=== PATIENT | female | born 1955 | race Caucasian/White ===

== ENCOUNTER → 2022-05-30 | Outpatient (CLI) | payer MEDICARE, SELFPAY ==
[2022-05-30 15:23] LABS: AST(SGOT) 17 U/L (15-37); Alanine Aminotransfer ALT/SGPT 26 U/L (13-56); Albumin, Serum 3.7 g/dL (3.2-5.0); Alkaline Phosphatase 75 U/L (45-117); Bilirubin, Direct 0.09 mg/dL (0.00-0.30); Globulin 3.9 g/dL (2.2-4.2); Protein, Total 7.6 g/dL (6.4-8.2)
[2022-06-01 09:38] LABS: Alpha Antitrypsin Serum 141 mg/dL (101-187)
== END | disposition home or self-care (01) ==
LOC: BIMLAB 12:16
PROVIDERS: PCP Family Medicine; Referring Provider Internal Medicine Pulmonary Disease; Visit Provider Internal Medicine Pulmonary Disease
DX: E88.01 Alpha-1-antitrypsin deficiency (principal)
CPT/HCPCS: 36415; 80076; 82103

== ENCOUNTER → 2022-10-29 | Outpatient (CLI) | payer MEDICARE, SELFPAY ==
--- NOTE | 2022-10-29 13:28 | CT_ITS ---
EXAM: CT CHEST, LUNG CANCER SCREENING WITHOUT INTRAVENOUS CONTRAST CLINICAL INDICATION: NICOTINE DEPENDENCE TECHNIQUE: Helically acquired images were obtained of the chest without intravenous contrast using low dose (LDCT) lung cancer screening protocol. This CT exam was performed using one or more of the following dose reduction techniques: automated exposure control, adjustment of the mA and/or kV according to patient size, and/or use of iterative reconstruction technique. This report was created using [email or web address] report generation technology. COMPARISON: None. FINDINGS: LUNGS AND PLEURAL SPACES: There are calcified nodules in both lung bases. There are mild emphysematous changes within both upper lobes. There is a small 4 mm noncalcified nodule attached to the fissure in the right upper lobe. There is linear scarring and atelectasis seen within the lingula of the left upper lobe. No pleural effusion or thickening. No pneumothorax. HEART: Unremarkable. Heart size is normal. No pericardial effusion. No significant coronary artery calcifications. MEDIASTINUM: Unremarkable. No mediastinal or hilar adenopathy. Esophagus is unremarkable. No hiatal hernia. THYROID: Unremarkable. No thyroid lesions. BONES/JOINTS: Unremarkable. No suspicious lytic or blastic abnormality. VASCULATURE: Unremarkable. Thoracic aorta is non-dilated. LYMPH NODES: Unremarkable. No enlarged lymph nodes. OTHER FINDINGS: There is a 2 mm noncalcified nodule in the left apex seen on series [address]/Low Dose CT Lung Screening IMPRESSION: Scarring or atelectasis within the lingula. There is a tiny noncalcified nodule in the left apex as well as a small noncalcified nodule attached to the pleura in the right upper lobe. No acute abnormalities identified. Lung-RADS score: 2 - Benign Appearance or Behavior. Recommend continued annual screening with low-dose CT (LDCT) in 12 months. Electronically Signed: Lazaro Cervantes MD at 23:50 EST ,
== END | disposition home or self-care (01) ==
PROVIDERS: PCP Family Medicine; Referring Provider Internal Medicine Pulmonary Disease; Visit Provider Internal Medicine Pulmonary Disease
DX: Z87.891 Personal history of nicotine dependence (principal)
CPT/HCPCS: 71271

== ENCOUNTER → 2023-12-14 | Outpatient (CLI) | payer MEDICARE, SELFPAY ==
--- NOTE | 2023-12-14 14:00 | CT_ITS ---
STUDY: LOW DOSE CT LUNG CANCER SCREENING REASON FOR EXAM: Female, 68 years old. Personal history of nicotine dependence RADIATION DOSAGE (If Supplied By Facility): CTDIvol = ( 2.01 ) mGy, DLP = ( 69.72 ) mGycm TECHNIQUE: No contrast was administered. Low dose technique was utilized (average mAS-38 and kVp 120). 1.25 mm axial source images with a slice interval of 1.25-mm were reconstructed in lung windows. 2.5 mm axial source images with a slice interval of 2.5-mm were reconstructed in lung windows. 5.0 mm axial source images with a slice interval of 5.0-mm were reconstructed in soft tissue windows. COMPARISON: 10/29/2022 Emphysema: Mild bilateral apical scarring. Mild emphysema. No change in a 4 mm noncalcified nodule in the inferior right upper lobe lungs adjacent to the minor fissure on image 128 consistent with a paravertebral lymph node. There is also no change in a 4 mm noncalcified nodule in the inferior right lower lobe lungs on image 221 consistent with a noncalcified granuloma. No change in linear scarring in the lingula. No new noncalcified nodule or mass. Endobronchial lesion: None Aorta: No thoracic aortic aneurysm. CORONARY ARTERIES: Coronary artery calcification is not seen. Heart: No cardiomegaly. Pulmonary artery: Normal Mediastinal nodes: Normal Other chest and abdominal findings: None CT/Low Dose CT Lung Screening IMPRESSION: Lung-RADS category 2 - Continue annual screening with LDCT in 12 months. IMPORTANT NOTES FOR USE: ACR Lung-RADS Version 1.1 Assessment Categories Release Date: 2018 Category: Coded 0-4 bases on nodule(s) with highest degree of suspicion. Negative screen is defined as categories 1 and 2; a positive screen is defined as categories 3 and 4. Category 3 and 4A nodules that are unchanged on interval CT should be coded as category 2, and individuals returned to screening in 12 months. Category 4X: Category 3 or 4 nodules with additional imaging findings that increase the suspicion of lung cancer, such as spiculation, GGN that doubles in size in 1 year, enlarged lymph notes, etc. Category Modifiers: S (significant finding unrelated to lung cancer) Electronically Signed: Hao Orellana MD at 22:38 EDT ,
== END | disposition home or self-care (01) ==
PROVIDERS: PCP Family Medicine; Referring Provider Internal Medicine Pulmonary Disease; Visit Provider Internal Medicine Pulmonary Disease
DX: Z87.891 Personal history of nicotine dependence (principal)
CPT/HCPCS: 71271

== ENCOUNTER 2024-08-12 14:09 | Inpatient (IN) | payer MEDICARE, SELFPAY ==
[2024-08-12] VITALS (23 sets, daily range): BP systolic 72–178; BP diastolic 53–120; PULSE 69–135; RESP 10–29; TEMP 36.6–36.8; O2SAT 75–100; BMI 23.3; BMI 22.8
--- NOTE | 2024-08-12 14:27 | EKG12_ITS ---
Test Reason : SOB Blood Pressure : */* mmHG Vent. Rate : 85 BPM Atrial Rate : 85 BPM P-R Int : 126 ms QRS Dur : 94 ms QT Int : 368 ms P-R-T Axes : 80 -58 83 degrees QTcB Int : 437 ms Normal sinus rhythm Left axis deviation Minimal voltage criteria for LVH, may be normal variant ( [place] product ) Septal infarct , age undetermined Abnormal ECG Confirmed by TORRES SANDOVAL, MARY ([id number]), city editor SHILPA NORRIS ([id number]) on 08/17/2024 1:33:02 P M Referred By: LAURA Confirmed By: MARY MACDONALD MD
--- NOTE | 2024-08-12 14:31 | EDS_ITS ---
HPI <MAHI Osman - Last Filed: 08/12/24 15:49> History of Present Illness Chief Complaint: Shortness of Breath Narrative Narrative: Patient 68-year-old female who presents to the [facility] apartment for worsening shortness of breath. Known past medical history of COPD, 1/2 pack/day smoker. Patient was seen at [facility] in the emergency department Thursday of this last week, that was 4 days ago, patient was placed on a Z-Lefty as well as prednisone. Per the daughter, the patient has been struggling at home, today, the patient was much more short of breath, 70% out in triage and is here for evaluation. Denies any specific fevers or chills however does have worsening cough. [facility] <MAHI Osman - Last Filed: 08/12/24 15:49> [facility] Medical History (Updated 08/12/24 @ 15:[address] Jacques Lacy MD) COPD (chronic obstructive pulmonary disease) Home Medications ?Medication ?Instructions ?Recorded ?Last Taken ?Type albuterol sulfate 90 mcg/actuation 2 inh inhalation Q6H PRN shortness 08/12/24 Unknown History aerosol inhaler of breath or wheezing aspirin 81 mg chewable tablet 1 tab PO DAILY 08/12/24 Unknown History (Aspirin Childrens) famotidine 40 mg tablet 40 mg PO DAILY 08/12/24 Unknown History glycopyrrolate 9 mcg-formoterol 2 inh inhalation BID 08/12/24 Unknown History 4.8 mcg HFA aerosol inhaler (Bevespi Aerosphere) Allergy/AdvReac Type Severity Reaction Status Date / Time No Known Allergies Allergy Verified 08/12/24 14:11 Social History Smoking Status: Current every day smoker tobacco type: cigarettes ROS <MAHI Osman - Last Filed: 08/12/24 15:49> ROS ED ROS Narrative Constitutional: Negative for fever, chills, weight loss. Positive for weakness Eyes: Negative for vision loss, vision change, double vision ENT: Negative for any sore throat, ear pain, congestion Cardiovascular: Negative for any chest pain, tightness, palpitations Respiratory: Negative for any sputum production, hemoptysis. Positive for cough, dyspnea, dyspnea on exertion, orthopnea Gastrointestinal: Negative for any abdominal pain, nausea, vomiting, diarrhea, constipation, blood in stool, blood in vomit : Negative for any urinary frequency, dysuria, retention, blood in urine Muscle skeletal: Negative for any neck pain, back pain Neurological: Negative for any headache, syncope, dizziness Skin: Negative for any rashes, itching, abrasions, lacerations Psychiatric: Negative for any depression, anxiety, stress, suicidal ideation, homicidal ideation Hematologic: Negative for any excessive bruising, easy bleeding EXAM <Tommy Diaz NP-C - Last Filed: 08/12/24 15:49> Physical Exam Narrative Exam Narrative: Vital signs reviewed. Patient on my initial evaluation patient did look to be in mild distress with tachypnea, broken sentences, obvious wheezing. Patient on 2 L is 93 to 94% HEET: Head normocephalic atraumatic, TMs clear bilaterally. Posterior pharynx is clear, dry mucous membranes. Nares clear bilaterally. Neck: Supple with no lymphadenopathy or tenderness. No signs of meningismus. Cardiac: Regular rate and rhythm no murmurs gallops or rubs, equal peripheral pulses bilaterally. Respiratory: Patient is tachypneic, using lithographers printer muscles, expiratory wheezes throughout pulmonary exam. Diminished lung sounds in the lower lobes.. No chest tenderness. Abdomen: Soft, nontender, nondistended. No abdominal bruit or pulsatile masses. No hepatosplenomegaly Extremities: No peripheral edema, no signs of gross trauma or deformity. Active full range of motion of all extremities. Neuro: Cranial nerves II through XII intact, no focal neurological deficits. Skin: Clean dry and intact with no rash, purpura, petechiae, vesicles or pustules. Backs/flank: No CVA tenderness, no midline spinal tenderness, no deformity. Psych: Normal mood and affect. No SI, HI or acute psychosis. Const Vital Signs: 08/12/24 14:11 08/12/24 14:32 08/12/24 14:32 Temperature 98 F Temperature Source Oral Pulse Rate 87 92 86 Respiratory Rate 28 H 23 H 22 H Respiratory Effort Respiratory Depth Respiratory Pattern Tachypnea Tachypnea Blood Pressure 160/72 H Blood Pressure Mean 101 Pulse Ox 97 98 Oxygen Delivery Method Nasal Cannula Oxygen Flow Rate (L/min) 2 Fraction of Inspired Oxygen (FIO2) 30 08/12/24 14:35 08/12/24 14:48 08/12/24 15:10 Temperature Temperature Source Pulse Rate 89 Respiratory Rate 25 H Respiratory Effort Short of Breath Accessory Muscle Use Respiratory Depth Shallow Respiratory Pattern Tachypnea Blood Pressure 148/110 H Blood Pressure Mean 122 Pulse Ox 93 Oxygen Delivery Method Room Air Room Air Bi-pap Oxygen Flow Rate (L/min) Fraction of Inspired Oxygen (FIO2) 08/12/24 15:18 08/12/24 15:39 Temperature Temperature Source Pulse Rate 86 89 Respiratory Rate 26 H 24 H Respiratory Effort Respiratory Depth Respiratory Pattern Blood Pressure 167/95 H Blood Pressure Mean 119 Pulse Ox 94 100 Oxygen Delivery Method Bi-pap Oxygen Flow Rate (L/min) Fraction of Inspired Oxygen (FIO2) 25 <Dr. Jacques Lacy MD - Last Filed: 08/12/24 16:31> Physical Exam Const Vital Signs: 08/12/24 14:11 08/12/24 14:32 08/12/24 14:32 Temperature 98 F Temperature Source Oral Pulse Rate 87 92 86 Respiratory Rate 28 H 23 H 22 H Respiratory Effort Respiratory Depth Respiratory Pattern Tachypnea Tachypnea Blood Pressure 160/72 H Blood Pressure Mean 101 Pulse Ox 97 98 Oxygen Delivery Method Nasal Cannula Oxygen Flow Rate (L/min) 2 Fraction of Inspired Oxygen (FIO2) 30 08/12/24 14:35 08/12/24 14:48 08/12/24 15:10 Temperature Temperature Source Pulse Rate 89 Respiratory Rate 25 H Respiratory Effort Short of Breath Accessory Muscle Use Respiratory Depth Shallow Respiratory Pattern Tachypnea Blood Pressure 148/110 H Blood Pressure Mean 122 Pulse Ox 93 Oxygen Delivery Method Room Air Room Air Bi-pap Oxygen Flow Rate (L/min) Fraction of Inspired Oxygen (FIO2) 08/12/24 15:18 08/12/24 15:39 Temperature Temperature Source Pulse Rate 86 89 Respiratory Rate 26 H 24 H Respiratory Effort Respiratory Depth Respiratory Pattern Blood Pressure 167/95 H Blood Pressure Mean 119 Pulse Ox 94 100 Oxygen Delivery Method Bi-pap Oxygen Flow Rate (L/min) Fraction of Inspired Oxygen (FIO2) 25 MDM <MAHI Osman - Last Filed: 08/12/24 15:49> MDM Lab Data Labs: Laboratory Results - last 24 hr 08/12/24 14:27 WBC 12.6 H RBC 4.54 Hgb 12.8 Hct 39.4 MCV 86.8 MCH 28.2 MCHC 32.5 RDW Std Deviation 41.5 RDW Coeff of Kody 13.1 Plt Count 254 MPV 9.7 Immature Gran % (Auto) 0.900 Neut % (Auto) 83.1 H Lymph % (Auto) 8.9 L [place] % (Auto) 6.7 Eos % (Auto) 0.0 Baso % (Auto) 0.4 Absolute Neuts (auto) 10.5 H Absolute Lymphs (auto) 1.13 Nucleated RBC % 0 Sodium 133 L Potassium 4.0 Chloride 96 L Carbon Dioxide 29.0 Anion Gap 8 BUN 19 H Creatinine 0.66 Est GFR (MDRD) Af Amer 114 Est GFR (MDRD) Non-Af 94 BUN/Creatinine Ratio 28.6 H Glucose 146 H Calcium 9.5 Troponin I High Sens 13 ABG Data ABG results: ABG 08/12/24 14:33 Specimen Type HECTOR Sample Site Not entered O2 % 2.0 VBG pH 7.35 VBG pO2 44 H VBG HCO3 28 H VBG Total CO2 29 VBG O2 Sat (Calc) 76 H VBG Base Excess 2 POC Mix VBG pCO2 Pt Tmp 50.2 O2 Delivery Device Cannula Radiography Diagnostic Testing: Clinical Impression(s) from Imaging Studies Chest X-Ray 08/12/24 14:45 IMPRESSION: Hyperinflation. No acute abnormality is seen. Electronically Signed: Jefferson Flaherty MD at 15:00 EST , EKG Sinus rhythm: Attestation: I personally reviewed and interpreted this EKG as follows: Interpretation: Sinus Rhythm Comments: EKG shows normal sinus rhythm, rate of 85 bpm, [place] interval 126 ms, QRS duration 94 ms, no acute ST elevation, no acute infarct noted. Treatment and Re-Evaluation :: Differential diagnosis includes however is not limited to: CHF exacerbation, COVID-19, influenza, community-acquired pneumonia, CHF exacerbation, respiratory failure Patient on my initial evaluation seem to be mild distress secondary to shortness of breath, wheezing, tachypnea. Patient will receive a full cardiac/respiratory workup. Basic laboratory values, troponin, COVID-19 influenza RSV swab. Chest x-ray will be obtained. Patient will receive a VBG. Breathing treatments, IV steroids administered. On my initial evaluation, I do believe the patient will need to be admitted to the hospital. Patient will be failed outpatient therapy. Patient is currently getting breathing treatments, patient's VBG shows a normal pH, CO2 of 50.2, SaO2 of 76% which is slightly low. EKG was unremarkable. Patient did start to get tired, patient then got anxious, secondary to work of breathing, patient be tried on BiPAP. Patient responded well to BiPAP, she did need a little bit of Ativan to help relax her. Patient's RSV was positive. Again leukocytosis with a white blood count 12.6, patient's chemistries show glucose of 146, troponin was negative. We did speak with the admitting physician Dr. Sanchez. Patient will be admitted to the ICU secondary to being on BiPAP. Patient stable for admission <Dr. Jacques Lacy MD - Last Filed: 08/12/24 16:31> [facility] MDM Narrative Medical decision making narrative: I have personally performed a face to face assessment of the patient and have reviewed the JEEVAN Note. I performed a substantive portion of the visit including all aspects of the following. My menjivar findings include: History is worsening dyspnea with COPD despite recent prescriptions for steroids and azithromycin. Coughing up green sputum no blood. Chest tightness but no other chest pain. No edema in legs. No fevers. Getting tired and weaker. Exam is alert and conversive and following commands but in mild respiratory distress. Diffuse wheezing and tightness, equal bilateral. Nonfocal neuroexam. Medical Decison Making patient getting nebulizer treatments and not improving a lot with regards to respiratory insufficiency/distress so starting BiPAP. 1 view chest x-ray on my interpretation shows COPD hyperinflation but no acute infiltrates or pneumothorax. Patient doing better on BiPAP but requiring Ativan for anxiety, will admit ICU discussed with hospitalist. COVID/influenza is negative, RSV is positive. Patient continued to have distress despite BiPAP. ABG was repeated, showing worsening acidosis and CO2 retention. We took the patient off of BiPAP. Still in respiratory distress and very fatigued. However she is able to mentate and converse in a limited fashion. We discussed the pros and cons of putting her on the ventilator and intubating her, she preferred to be placed on the ventilator which was done see the procedure note. Discussed with hospitalist. Lab Data Attestation: I reviewed the patient's lab results. Labs: Laboratory Results - last 24 hr 08/12/24 14:27 WBC 12.6 H RBC 4.54 Hgb 12.8 Hct 39.4 MCV 86.8 MCH 28.2 MCHC 32.5 RDW Std Deviation 41.5 RDW Coeff of Kody 13.1 Plt Count 254 MPV 9.7 Immature Gran % (Auto) 0.900 Neut % (Auto) 83.1 H Lymph % (Auto) 8.9 L [place] % (Auto) 6.7 Eos % (Auto) 0.0 Baso % (Auto) 0.4 Absolute Neuts (auto) 10.5 H Absolute Lymphs (auto) 1.13 Nucleated RBC % 0 Sodium 133 L Potassium 4.0 Chloride 96 L Carbon Dioxide 29.0 Anion Gap 8 BUN 19 H Creatinine 0.66 Est GFR (MDRD) Af Amer 114 Est GFR (MDRD) Non-Af 94 BUN/Creatinine Ratio 28.6 H Glucose 146 H Calcium 9.5 Troponin I High Sens 13 ABG Data ABG results: ABG 08/12/24 14:33 Specimen Type HECTOR Sample Site Not entered O2 % 2.0 VBG pH 7.35 VBG pO2 44 H VBG HCO3 28 H VBG Total CO2 29 VBG O2 Sat (Calc) 76 H VBG Base Excess 2 POC Mix VBG pCO2 Pt Tmp 50.2 O2 Delivery Device Cannula Radiography Diagnostic Testing: Clinical Impression(s) from Imaging Studies Chest X-Ray 08/12/24 14:45 IMPRESSION: Hyperinflation. No acute abnormality is seen. Electronically Signed: Jefferson Flaherty MD at 15:00 EST , Procedures <Dr. Jacques Lacy MD - Last Filed: 08/12/24 16:31> Intubations Intubation Method: orotracheal (Via glide scope with cords visualized and the tube passing through the cords which were small and relatively abducted despite paralysis) Intubation Verification: Positive color change and Bilateral breath sounds confirmed Intubation Complications: no complications (Except small amount of right vocal cord bleeding; tube was very gently passed between the cords, but they were tight) Procedural Sedation 1 (Initial Baseline): Consent Signed: Yes (Verbal consent given) Any Problems With Anesthesia: No Sedation medication: Etomidate Dose: 20 Route: IV Total Moderate Sedation Units: 9 Maliampati Score: Class II ASA Classification: IV Comment:: On monitor with prophylactic nasal cannula oxygenation and IV fluids, end-tidal CO2 monitoring, airway equipment at the bedside. Tolerated well with no complications. <Dr. Jacques Lacy MD - Last Filed: 08/12/24 16:31> Critical Care Time Critical Care Time: Yes Critical care time (excluding procedures): 30-74 minutes (40min, not including procedure time), Including time spent:, Discussing w/Patient &/or Family/Wholesale Buyer, Discussing w/Consultants, Arranging Admission or Transfer and Performing Direct Patient Care at Bedside Discharge Plan Dx/Rx/DC Orders Clinical Impression: Acute respiratory failure with hypoxia and hypercapnia, COPD with exacerbation, Infection due to respiratory syncytial virus (RSV) Disposition Disposition: Acute Care [facility]
[2024-08-12] MEDS: MethylPREDNISolone 125 MG/2 ML Vial IV (14:32)
[2024-08-12] MEDS: Albuterol 2.5 MG/3 ML VIAL.NEB. 5 MG INHALATION (14:33)
[2024-08-12] MEDS: Ipratropium/Albuterol Sulfate 3 ML AMPUL.NEB INHALATION ×3 (14:33→22:56)
[2024-08-12 14:36] LABS: Blood Gas Specimen Type VEN; O2 Delivery Device Cannula; SITE Not entered; VBG BASE EXCESS 2 mmol/L (-1.0-3.5); VBG Bicarbonate 28 mmol/L (22-26); VBG PO2 44 mmHg (25-40); VBG SO2 76 % (50-70); VBG TCO2 29 mmol/L (23-33); VBG pCO2 50.2 mmHg (41-51); VBG pH 7.35 (7.32-7.42)
[2024-08-12 14:37] LABS: Absolute Lymphocyte Count 1.13 X10^3/uL (0.83-4.51); Absolute Neutrophil Count 10.5 X10^3/uL (2.0-7.7); Basophil# 0.05 X10^3/uL; Basophil% 0.4 % (0-1); Hematocrit 39.4 % (37-47); Hemoglobin 12.8 g/dL (12.0-15.0); Lymphocyte # 1.13 X10^3/ul (0.83-4.51); Lymphocyte % 8.9 % (19-41); Mean Corp Hgb Conc 32.5 g/dL (32-36); Mean Corpuscular Hgb 28.2 pg (27.0-32.0); Mean Corpuscular Volume 86.8 fL (81-99); Mean Platelet Vol. 9.7 fl (6.2-12.0); Monocyte# 0.85 X10^3/uL; Monocyte% 6.7 % (0-10); NRBC Flagged by Analyzer 0 % (0-5); Neutrophil % 83.1 % (47-70); Platelet Count 254 K/mm3 (150-450); RBC Distribution Width CV 13.1 % (11.6-14.6); RBC Distribution Width SD 41.5 fl (35.1-43.9); Red Blood Count 4.54 M/mm3 (4.2-5.4); White Blood Count 12.6 K/mm3 (4.4-11.0)
--- NOTE | 2024-08-12 14:45 | RAD_ITS ---
STUDY: X-RAY CHEST REASON FOR EXAM: Female, 68 years old. Cough TECHNIQUE: Single AP portable view of the chest. COMPARISON: None. FINDINGS: EKG electrodes are seen. Hyperinflation. Scattered calcified granulomas. No acute infiltrate is seen. There is no demonstrated pleural abnormality. Normal size heart. Normal mediastinum and jer. Normal visualized pulmonary arteries. Normal visualized aortic arch and descending thoracic aorta. Normal visualized thoracic spine. Normal visualized ribs, clavicles, and shoulders. There is no demonstrated abnormality of the visualized soft tissue structures of the upper abdomen. RAD/Chest 1 View (Portable) IMPRESSION: Hyperinflation. No acute abnormality is seen. Electronically Signed: Jefferson Flaherty MD at 15:00 EST ,
[2024-08-12] MEDS: LORazepam 2 MG/ML Syringe 0.5 MG IV ×2 (14:59→15:58)
[2024-08-12 15:00] LABS: Anion Gap 8 (5-15); BUN 19 mg/dL (7-18); BUN/Creat Ratio 28.6 RATIO (10-20); Calcium,Total 9.5 mg/dL (8.5-10.1); Chloride 96 mmol/L (98-107); Creatinine, Serum 0.66 mg/dL (0.55-1.02); EST Glomerular Filtration Rate 94 mL/min (>60); Est Glom Filt Rate - Afr Amer 114 mL/min (>60); Glucose 146 mg/dL (74-106); Sodium Level 133 mmol/L (136-145); Troponin-I HS 13 pg/mL (3.0-54.0)
[2024-08-12 16:07] LABS: Allen Test Positive; Base Excess 1 mmol/L (-2 to +2); Bicarbonate 27.1 mmol/L (22-26); Blood Gas Specimen Type ART; Mode Not entered; O2 Delivery Device BiPAP; PO2 82 mmHG (75-100); SITE R Radial; SO2 95 % (95-99); Total Carbon Dioxide 29 mmol/L; pH 7.31 (7.35-7.45)
--- NOTE | 2024-08-12 16:20 | ED.RN ---
with permission, called sister shikha to update her regarding condition of pt and that 19 y.o wendy was alone at bedside at this time. Adviced if possible it would be good for her to come in. sister thanked me for letting her know. did not given confirmation whether she would come in. granddaughter Lily states there was no one else she could call that would come in. Ricki granddaughters boyfriend is on way to be with family (grand daughter). this nurse sitting with family while dr and nursing caring for pt. social work notified
[2024-08-12] MEDS: Etomidate 20 MG/10 ML Vial IV (16:23)
[2024-08-12] MEDS: Rocuronium Bromide 50 MG/5 ML Vial 80 MG IV (16:23)
[2024-08-12] MEDS: Propofol 10MG/Ml 1,000 MG/100 ML Bottle 3.8 MG CONT INF (16:28)
--- NOTE | 2024-08-12 16:35 | RAD_ITS ---
STUDY: X-RAY CHEST REASON FOR EXAM: Female, 68 years old. ETT placement TECHNIQUE: Single frontal view of the chest. COMPARISON: 2:47 PM today FINDINGS: ET tube terminates above the lamont. Enteric tube terminates in the stomach. Lungs are hyperaerated. Increased interstitial markings at the lung bases. There is no demonstrated pleural abnormality. Normal size heart. Normal mediastinum and jer. Normal visualized pulmonary arteries. Normal visualized aortic arch and descending thoracic aorta. Normal visualized thoracic spine. Normal visualized ribs, clavicles, and shoulders. There is no demonstrated abnormality of the visualized soft tissue structures of the upper abdomen. RAD/Chest 1 View (Portable) IMPRESSION: Life Support apparatus as above. COPD. Electronically Signed: Rene Romero MD at 17:50 EST ,
--- NOTE | 2024-08-12 16:38 | HP.PCM.HOS_ITS ---
HPI - General General Date of Admission: 08/12/24 Date of Service: 08/12/24 Chief Complaint: shortness of breath. HPI Narrative YADIRA ARIZMENDI, is a 68 F who presents with shortness of breath. This is a 68-year-old female with a history of COPD was seen earlier this week at [facility] and was started on Z-Lefty as well as prednisone. Patient was not faring well at home and was becoming more short of breath. Was brought to the emergency room here and was noted to be 70% on room air in the triage. Patient was started on BiPAP. Her venous blood gas showed pH pO2 of 44 and CO2 of 29. Patient continued to get worse. Repeat blood gas which was an arterial blood gas while she has not BiPAP showed pH of 7.31, pCO2 of 54. Given fact that she was overall not looking any better and with increasing carbon dioxide, is concerned patient was going to have respiratory collapse and so decision was made to intubate the patient. Patient was on the BiPAP when I initially saw her and was very tachypneic and anxious so was unable to get adequate history so much of the history is obtained through the emergency room physician. While in the emergency room also she received methylprednisolone, bronchodilators. [facility], [facility] Medical History COPD (chronic obstructive pulmonary disease) Home Medications ?Medication ?Instructions ?Recorded ?Last Taken ?Type albuterol sulfate 90 mcg/actuation 2 inh inhalation Q6H PRN shortness 08/12/24 Unknown History aerosol inhaler of breath or wheezing aspirin 81 mg chewable tablet 1 tab PO DAILY 08/12/24 Unknown History (Aspirin Childrens) famotidine 40 mg tablet 40 mg PO DAILY 08/12/24 Unknown History glycopyrrolate 9 mcg-formoterol 2 inh inhalation BID 08/12/24 Unknown History 4.8 mcg HFA aerosol inhaler (Bevespi Aerosphere) Allergy/AdvReac Type Severity Reaction Status Date / Time No Known Allergies Allergy Verified 08/12/24 14:11 Family History unable to obtain unable to obtain Surgical History unable to obtain unable to obtain Social History Smoking Status: Current every day smoker tobacco type: cigarettes ROS ROS Narrative Unable to obtain given respiratory distress and patient being on BiPAP and eventually intubated. Vital Signs Vital Signs Vital Signs: 08/12/24 14:11 08/12/24 14:32 08/12/24 14:32 Temperature 36.6 C Temperature Source Oral Pulse Rate 87 92 86 Respiratory Rate 28 H 23 H 22 H Respiratory Effort Respiratory Depth Respiratory Pattern Tachypnea Tachypnea Blood Pressure 160/72 H Blood Pressure Mean 101 Pulse Ox 97 98 Oxygen Delivery Method Nasal Cannula Oxygen Flow Rate (L/min) 2 Fraction of Inspired Oxygen (FIO2) 30 08/12/24 14:35 08/12/24 14:48 08/12/24 15:10 Temperature Temperature Source Pulse Rate 89 Respiratory Rate 25 H Respiratory Effort Short of Breath Accessory Muscle Use Respiratory Depth Shallow Respiratory Pattern Tachypnea Blood Pressure 148/110 H Blood Pressure Mean 122 Pulse Ox 93 Oxygen Delivery Method Room Air Room Air Bi-pap Oxygen Flow Rate (L/min) Fraction of Inspired Oxygen (FIO2) 08/12/24 15:18 08/12/24 15:39 08/12/24 16:07 Temperature Temperature Source Pulse Rate 86 89 90 Respiratory Rate 26 H 24 H Respiratory Effort Respiratory Depth Respiratory Pattern Blood Pressure 167/95 H 151/94 H Blood Pressure Mean 119 113 Pulse Ox 94 100 Oxygen Delivery Method Bi-pap Oxygen Flow Rate (L/min) Fraction of Inspired Oxygen (FIO2) 25 08/12/24 16:16 Temperature Temperature Source Pulse Rate Respiratory Rate Respiratory Effort Labored Accessory Muscle Use Nasal Flaring Head Bobbing Respiratory Depth Respiratory Pattern Tachypnea Blood Pressure Blood Pressure Mean Pulse Ox Oxygen Delivery Method Oxygen Flow Rate (L/min) Fraction of Inspired Oxygen (FIO2) Weight Weight: 63.6 kg Body Mass Index (BMI) 23.3 Physical Exam Const Constitutional Narrative: Seen while initially on the BiPAP. Patient was tachypneic with a respiratory rate to the 30s. Anxious. Confused. HEENT normocephalic and head/scalp atraumatic Eyes Eyes Narrative: No icterus Neck no lymphadenopathy and supple Resp Resp Narrative: Tachypneic. Using accessory muscles while on the BiPAP. Coarse breath sounds with wheezes appreciated throughout. Cardio regular rate, regular rhythm, S1 normal heart sound and S2 normal heart sound GI normal to inspection, nondistended, normoactive bowel sounds, soft to palpation, non-tender and non-distended Extremity normal to inspection, full ROM and no clubbing, cyanosis or edema Neuro moves all extremities Sensorium / Orientation: awake Psych Mood & Affect: anxious Results Lab / Micro Data Attestation: I reviewed the patient's lab results. Lab results narrative: Chest x-ray personally reviewed and showed no infiltrate. Hyperinflated airways. 08/12/24 14:27 08/12/24 14:27 Labs: Laboratory Results - last 24 hr 08/12/24 14:27: WBC 12.6 H, RBC 4.54, Hgb 12.8, Hct 39.4, MCV 86.8, MCH 28.2, MCHC 32.5, RDW Std Deviation 41.5, RDW Coeff of Kody 13.1, Plt Count 254, MPV 9.7, Immature Gran % (Auto) 0.900, Neut % (Auto) 83.1 H, Lymph % (Auto) 8.9 L, [place] % (Auto) 6.7, Eos % (Auto) 0.0, Baso % (Auto) 0.4, Absolute Neuts (auto) 10.5 H, Absolute Lymphs (auto) 1.13, Nucleated RBC % 0, Sodium 133 L, Potassium 4.0, Chloride 96 L, Carbon Dioxide 29.0, Anion Gap 8, BUN 19 H, Creatinine 0.66, Est GFR (MDRD) Af Amer 114, Est GFR (MDRD) Non-Af 94, BUN/Creatinine Ratio 28.6 H, Glucose 146 H, Calcium 9.5, Troponin I High Sens 13 Micro: Microbiology 08/12/24 14:33 Mucosa - Nose SARS-CoV-2, Influenza & RSV (PCR) - Final ABG Data ABG results: ABG 08/12/24 08/12/24 14:33 16:04 Specimen Type HECTOR ART Sample Site Not entered R Radial pH 7.31 L Bicarbonate Actual 27.1 H Total CO2 29 Base Excess 1 O2 Saturation 95 O2 % 2.0 30.0 ABG pCO2 54.0 H ABG pO2 82 Loi Test Positive VBG pH 7.35 VBG pO2 44 H VBG HCO3 28 H VBG Total CO2 29 VBG O2 Sat (Calc) 76 H VBG Base Excess 2 POC Mix VBG pCO2 Pt Tmp 50.2 O2 Delivery Device Cannula BiPAP Vent Mode Not entered Imaging Radiology Impression Chest X-Ray 08/12/24 14:45 IMPRESSION: Hyperinflation. No acute abnormality is seen. Electronically Signed: Jefferson Flaherty MD at 15:00 EST , Assessment & Plan Assessment/Plan (1) Acute respiratory failure with hypoxia and hypercapnia: PLAN: Secondary to COPD exacerbation. Will treat her empirically for pneumonia given her respiratory failure but is most likely COPD exacerbation secondary to RSV infection. Patient to intubated and will consult pulmonary for further ventilator management. Patient will have sedation with propofol as well as fentanyl. Because pneumonia is a possibility though I think less likely, will check a Streptococcus and Legionella antigens. Check sputum culture if able to produce. But if infectious workup from bacterial standpoint is negative then would recommend discontinuing antibiotic. (2) COPD with exacerbation: PLAN: Continue bronchodilators, methylprednisolone. Exacerbated likely due to the RSV infection. No treatment for the RSV. PLAN: Plan VTE prophylaxis with enoxaparin Before patient was intubated she agreed to being intubated. CODE STATUS is full. Charges/Coding Visit Charges Inpatient E&M: 52895 Init Hosp L3
--- NOTE | 2024-08-12 17:18 | ED.RN ---
PT SISTER PRESENT AT BEDSIDE AT THIS TIME.
[2024-08-12] MEDS: fentaNYL drip 100 ML 2.5 MCG CONT INF (17:30)
--- NOTE | 2024-08-12 17:46 | CM.ED ---
Social Work Reason for referral: Support to family, 17 year old granddaughter Referral Source: Renuka Salomon RN Renuka requested social work assistance as patient's 17 year old granddaughter, Monserrat, present in the ED. Monserrat tearful, alone without other family support, and patient in process of being intubated. Patient is reported to be Monserrat's legal guardian. Met with Monserrat, in triage room 2, where Monserrat was waiting as ED team addressed patient's medical needs. 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 Monserrat shares that patient is Monserrat's legal guardian, and has raised Monserrat for most of Monserrat's entire life. Patient's biological mother Staci Denis is living in the home, along with patient's other daughter Casandra Denis, and Casandra's daughter who is 11 or 12 (Marya). Monserrat reports both Casandra and Staci have Muscular Dystrophy, but are able to care for their own personal needs. Monserrat report to drive herself, and actually drove patient to the ED. Monserrat shares that patient has been to [facility] ED 2 times in the last week for breathing issues. Monserrat reports to have spoken with Monserrat's nursing technician who urged Monserrat to bring patient to the hospital again, so Monserrat brought patient to [facility]. Monserrat tearful, reports to have understanding about what is happening, and to feel scared. LUKE offered to call Monserrat's mother to update, but Monserrat declined stating that Staci will freak out if LUKE calls. Monserrat reports she will update Casandra and Staci. Monserrat's boyfriend Ricki arrived to the ED to keep patient company. Left Monserrat alone with her boyfriend for some private time. Spoke with LEANNA Small who reports to have notified patient's sister Joy about ED admission. Gisselle is listed as patient's next of kin. Staci unsure if Gisselle will be coming to the ED. Spoke with Dr. Lacy who confirms patient is to be admitted to the ICU, and that patient is positive for RSV, plus has COPD. Called Joy Villa, , patient's sister. Gisselle reports en route to the hospital. Vickey reports patient told Joy that Gisselle is patient's power of health care attorney for health care, but has never seen the paperwork and uncertain whether patient ever actually completed this. Shania reports she was at the patient's home last evening, getting updates on things, but did not think to ask about if paperwork had been completed. Joy will check with their brother, Portillo Morales, as Portillo is reportedly the executor of patient's estate. This typewriter operator automatic explored home situation, due to Monserrat and Nydia living in the home, and patient being Marya's legal guardian. Gisselle reports Staci and Casandra are both independent enough to take care of their own personal needs, and can even do things like cooking; it just takes a bit longer. Casandra and Staci do not drive or lift heavy things, but Casandra's significant other (Marya's father) Bro is in the home, independent and able to drive. Vickey reports all the adults in the home are in their 30's, outside of the patient. No reported concern with home situation or ability for the Monserrat or Marya to have their needs met at this time. Gisselle reports to live 10 minutes away from the patient's home, so is available if needs arise. Gisselle arrived to the ED, along with Joy's . This typewriter operator automatic and ALLEN Rose escorted Monserrat, Gisselle and their respective partners to the ICU waiting room. Updated LEANNA Conrad sorting supervisor that family is in the waiting room when patient is allowed to have visitors. Spoke with Gisselle again about the [facility] paperwork. Per Gisselle Portillo is uncertain whether there is paperwork completed. Gisselle expressed understanding that patient's daughters would be next of kin. Monserrat came upon this conversation and reported that prior to intubation, patient stated Gisselle is the [facility]. Monserrat is uncertain whether there is paperwork available. When Monserrat learned that Crystal and Staci would be next of kin decision makers, Monserrat expressed frustration in that patient wants Gisselle and belief that Crystal and Staci are not educated, and that should not make decisions. Gisselle educated Monserrat that the children are the technical next of kin. Monserrat made comment then, that Monserrat herself will help the children make decision if needed. This typewriter operator automatic suggested that if medical decisions need to be made,can look at involving Gisselle in discussions with the patient's children, so that all adults are hearing the same information and Gisselle can help the patient's children if needed. Emotional support offered to family. Both Gisselle and Monserrat expressed thanks. Plan: Handoff to acute care management team to follow for discharge planning, next of kin decision making if needed, and support as indicated. -LIZETTE Mayo
[2024-08-12] MEDS: 0.9% Normal Saline (1000mL) 1,000 ML 75 ML IV (17:56)
[2024-08-12] MEDS: Ceftriaxone 1 GM/50 ML BAG IV (18:11)
--- NOTE | 2024-08-12 18:29 | CASEMGMT ---
Social Work - Legal Decision Making Patient is a 68 year old female. Patient's sister Gisselle and patient's granddaughter Monserrat (who patient is the legal guardian of) both report patient has stated that Gisselle is the power of attorney recruiter for health care. Gisselle is checking with patient's brother Portillo Morales to see if Portillo is aware of any paperwork. Monserrat was able to identify a filing cabinet at the home, containing Monserrat's paperwork and records, so think any of patient's paperwork may be in this same cabinet. Either Monserrat or Dariel to look at the home for Advance Directive documents. At this time, without any paperwork on file patient's next of kin for decision making would be the patient's children: Staci and Casandra Patsudhakar, who both live in the home with patient. Both children have Muscular Dystrophy, and are able to manage their own care needs, though just at a slower pace. Patient's parents are . Patient's siblings are: Gisselle Villa ([phone]) and Portillo Morales. Plan: At this time, Gisselle and/or Monserrat are to look for Advance directive paperwork. If needed, the patient's children can be contacted through Gisselle or Monserrat, who are the two emergency contacts for patient currently. SW to follow and assist as needed/indicated. -LIZETTE Mayo
[2024-08-12 18:46] LABS: CPK Total, Creatine Kinase 1013 U/L (26-192); Triglycerides 65 mg/dL
[2024-08-12] MEDS: 0.9% Normal Saline (500mL Bag) 500 ML 999 ML IV (18:58)
[2024-08-12] MEDS: dexMEDEtomidine 400 MCG in 0.9% Normal Saline (100mL Bag) 96 ML 7.8 MCG CONT INF (19:30)
[2024-08-12 20:15] LABS: Base Excess 0 mmol/L (-2 to +2); Blood Gas Specimen Type ART; Mode AC; O2 Delivery Device Adult Vent; PEEP 5; PO2 78 mmHG (75-100); RR 14; SITE R Radial; SO2 95 % (95-99); Total Carbon Dioxide 26 mmol/L; pH 7.37 (7.35-7.45)
[2024-08-12] MEDS: Chlorhexidine 15 ML PO (21:12)
[2024-08-12] MEDS: 0.9% Normal Saline (1000mL) 1,000 ML 999 ML IV ×2 (22:45→23:46)
--- NOTE | 2024-08-12 22:45 | PCM.HOSP.N ---
Hospitalist Note Patient is on precedex and also fentanyl. She was initially on propofol but her pressures were notably low with SBPs 70-80 initially requiring the transition. May be the main component but to be safe will treat as potentially sepsis. Will given sepsis 30 cc/kg IVFs, obtain bld Cx. Sepsis Attestation Sepsis Alert: Yes Sepsis Attestation: Agree w/Sepsis Date exam was performed: 08/12/24 Time exam was performed: 22:46 Possible Source of Sepsis: Pulmonary Sepsis Organ Dysfunction Criteria Present: SBP < 90 mmHg or MAP < 65 mmHg Fluid Resuscitation Fluid resuscitation indicated?: Yes Fluid Resuscitation ordered: 30 ml/kg fluid bolus ordered Amount of fluid ordered: 2,000
[2024-08-12 23:37] LABS: Lactic Acid 0.9 mmol/L (0.4-1.9)
[2024-08-13] VITALS (39 sets, daily range): BP systolic 98–132; BP diastolic 61–98; PULSE 62–95; RESP 14–22; TEMP 36.1–37.6; O2SAT 92–100; BMI 23.3
[2024-08-13] MEDS: fentaNYL drip 100 ML 7.5 MCG CONT INF ×2 (01:38→11:49)
[2024-08-13] MEDS: Ipratropium/Albuterol Sulfate 3 ML AMPUL.NEB INHALATION ×6 (03:16→22:47)
[2024-08-13] MEDS: dexMEDEtomidine 400 MCG in 0.9% Normal Saline (100mL Bag) 96 ML 10.9 MCG CONT INF ×3 (03:42→21:40)
[2024-08-13] MEDS: 0.9% Normal Saline (1000mL) 1,000 ML 75 ML IV (04:29)
[2024-08-13 04:42] LABS: Absolute Lymphocyte Count 1.18 X10^3/uL (0.83-4.51); Absolute Neutrophil Count 7.3 X10^3/uL (2.0-7.7); Basophil# 0.01 X10^3/uL; Basophil% 0.1 % (0-1); Hematocrit 30.6 % (37-47); Lymphocyte # 1.18 X10^3/ul (0.83-4.51); Mean Corp Hgb Conc 32.7 g/dL (32-36); Mean Corpuscular Hgb 28.2 pg (27.0-32.0); Mean Corpuscular Volume 86.4 fL (81-99); Mean Platelet Vol. 9.7 fl (6.2-12.0); Monocyte% 5.5 % (0-10); NRBC Flagged by Analyzer 0 % (0-5); Neutrophil % 80.5 % (47-70); Platelet Count 191 K/mm3 (150-450); RBC Distribution Width SD 40.8 fl (35.1-43.9); Red Blood Count 3.54 M/mm3 (4.2-5.4); White Blood Count 9.1 K/mm3 (4.4-11.0)
[2024-08-13 05:34] LABS: Anion Gap 6 (5-15); BUN 18 mg/dL (7-18); BUN/Creat Ratio 37.3 RATIO (10-20); Calcium,Total 8.2 mg/dL (8.5-10.1); Chloride 107 mmol/L (98-107); Creatinine, Serum 0.48 mg/dL (0.55-1.02); EST Glomerular Filtration Rate 136 mL/min (>60); Est Glom Filt Rate - Afr Amer 165 mL/min (>60); Estimated Creatinine Clearance 59.73 ml/min; Glucose 151 mg/dL (74-106); Sodium Level 136 mmol/L (136-145)
[2024-08-13] MEDS: 0.9% Saline Lock 10 ML Syringe IV (06:27)
--- NOTE | 2024-08-13 07:11 | PN.HOSP_ITS ---
Reason for Visit Reason for Visit: Diagnoses Chronic obstructive pulmonary disease with (acute) exacerbation (08/12/24) Acute respiratory failure with hypoxia (08/12/24) Acute respiratory failure with hypercapnia (08/12/24) Subjective Subjective Still on vent. BP better after propofol turned off. Objective Data Objective Data Vital Signs: Vital Signs Temp Pulse Resp BP Pulse Ox O2 Del Method O2 Flow Rate 37.2 C 71 14 107/61 97 Mechanical Ventilator 2 08/13/24 07:00 08/13/24 07:04 08/13/24 07:04 08/13/24 07:00 08/13/24 07:04 08/13/24 07:00 08/12/24 14:11 FiO2 30 08/13/24 07:04 Oxygen Flow Rate (L/min) 2 Oxygen Delivery Method Mechanical Ventilator Weight: 63.4 kg Body Mass Index (BMI) 23.3 Intake & Output: Intake and Output for Last 24 Hours 08/11/24 08/12/24 08/13/24 23:59 23:59 23:59 Intake Total 1988.66 / 1998.89 937.78 / 937.78 Output Total 100 / 100 500 / 500 Balance 1889.66 / 1899.89 437.78 / 437.78 Lab / Micro Data 08/13/24 04:30 08/13/24 04:30 Labs: Laboratory Results - last 24 hr 08/12/24 14:27: WBC 12.6 H, RBC 4.54, Hgb 12.8, Hct 39.4, MCV 86.8, MCH 28.2, MCHC 32.5, RDW Std Deviation 41.5, RDW Coeff of Kody 13.1, Plt Count 254, MPV 9.7, Immature Gran % (Auto) 0.900, Neut % (Auto) 83.1 H, Lymph % (Auto) 8.9 L, [place] % (Auto) 6.7, Eos % (Auto) 0.0, Baso % (Auto) 0.4, Absolute Neuts (auto) 10.5 H, Absolute Lymphs (auto) 1.13, Nucleated RBC % 0, Sodium 133 L, Potassium 4.0, Chloride 96 L, Carbon Dioxide 29.0, Anion Gap 8, BUN 19 H, Creatinine 0.66, Est GFR (MDRD) Af Amer 114, Est GFR (MDRD) Non-Af 94, BUN/Creatinine Ratio 28.6 H, Glucose 146 H, Calcium 9.5, Total Creatine Kinase 1013 H, Troponin I High Sens 13, Triglycerides 65 08/12/24 22:55: Lactic Acid 0.9 08/13/24 04:30: WBC 9.1, RBC 3.54 L, Hgb 10.0 L, Hct 30.6 L, MCV 86.4, MCH 28.2, MCHC 32.7, RDW Std Deviation 40.8, RDW Coeff of Kody 13.0, Plt Count 191, MPV 9.7, Immature Gran % (Auto) 0.900, Neut % (Auto) 80.5 H, Lymph % (Auto) 13.0 L, [place] % (Auto) 5.5, Eos % (Auto) 0.0, Baso % (Auto) 0.1, Absolute Neuts (auto) 7.3, Absolute Lymphs (auto) 1.18, Nucleated RBC % 0, Sodium 136, Potassium 4.0, Chloride 107, Carbon Dioxide 23.0, Anion Gap 6, BUN 18, Creatinine 0.48 L, Estim Creat Clear Calc 59.73, Est GFR (MDRD) Af Amer 165, Est GFR (MDRD) Non-Af 136, B UN/Creatinine Ratio 37.3 H, Glucose 151 H, Calcium 8.2 L Micro: Microbiology 08/12/24 17:55 Urine Catheter - Rojas Legionella Antigen - Final 08/12/24 17:55 Urine Catheter - Rojas Streptococcus pneumoniae Antigen (M - Final 08/12/24 14:33 Mucosa - Nose SARS-CoV-2, Influenza & RSV (PCR) - Final ABG Data ABG results: ABG 08/12/24 08/12/24 08/12/24 14:33 16:04 20:12 Specimen Type HECTOR ART ART Sample Site Not entered R Radial R Radial pH 7.31 L 7.37 Bicarbonate Actual 27.1 H 25.0 Total CO2 29 26 Base Excess 1 0 O2 Saturation 95 95 O2 % 2.0 30.0 30.0 ABG pCO2 54.0 H 43.0 ABG pO2 82 78 Loi Test Positive N/A VBG pH 7.35 VBG pO2 44 H VBG HCO3 28 H VBG Total CO2 29 VBG O2 Sat (Calc) 76 H VBG Base Excess 2 POC Mix VBG pCO2 Pt Tmp 50.2 Respiration Rate 14 O2 Delivery Device Cannula BiPAP Adult Vent Vent Mode Not entered AC Tidal Volume 450.0 POC PEEP 5 Radiography Diagnostic Testing: Radiology Impression Chest X-Ray 08/12/24 14:45 IMPRESSION: Hyperinflation. No acute abnormality is seen. Electronically Signed: Jefferson Flaherty MD at 15:00 EST , Chest X-Ray 08/12/24 16:35 IMPRESSION: Life Support apparatus as above. COPD. Electronically Signed: Rene Romero MD at 17:50 EST , Physical Exam Const Constitutional Narrative: intubated. sedated. turns head to my voice. HEENT head/scalp atraumatic and moist oral mucous membranes HEENT Narrative: ETT. OG in place. Neck no lymphadenopathy and supple Resp normal respiratory effort, no retractions, no use of accessory muscles and clear to auscultation bilaterally Cardio regular rate, regular rhythm, S1 normal heart sound and S2 normal heart sound GI normal to inspection, nondistended, normoactive bowel sounds, soft to palpation, non-tender and non-distended Extremity normal to inspection and full ROM Assessment & Plan Assessment/Plan (1) Acute respiratory failure with hypoxia and hypercapnia: PLAN: Secondary to COPD exacerbation. Will treat her empirically for pneumonia given her respiratory failure but is most likely COPD exacerbation secondary to RSV infection. Patient to intubated and will consult pulmonary for further ventilator management. Because pneumonia is a possibility though I think less likely. Strep and legionella antigens negative. SCx pending. Resp panel negative. But if infectious workup from bacterial standpoint is negative then would recommend discontinuing antibiotic. (2) COPD with exacerbation: PLAN: Continue bronchodilators, methylprednisolone. Exacerbated likely due to the RSV infection. No treatment for the RSV. (3) Agitation: PLAN: Very agitated after intubation. Became hypotensive w propofol, which has been weaned off. On fentanyl and dexmedetomidine gtts. PLAN: Plan VTE prophylaxis with enoxaparin Before patient was intubated she agreed to being intubated. CODE STATUS is full. Charges/Coding Visit Charges Inpatient E&M: 79442 Subs Hosp L2
[2024-08-13] MEDS: Chlorhexidine 15 ML PO ×2 (07:43→21:38)
[2024-08-13] MEDS: Ceftriaxone 1 GM/50 ML BAG IV (07:45)
[2024-08-13] MEDS: Aspirin 81 MG TAB.CHEW NG (07:46)
[2024-08-13] MEDS: Famotidine 20 MG Tablet GT (08:10)
[2024-08-13] MEDS: Enoxaparin 40 MG/0.4 ML Syringe SC (08:10)
--- NOTE | 2024-08-13 16:09 | CASEMGMT ---
LEANAN TANG Assessment Face to Face with patient for initial transition planning/care coordination assessment. LEANNA TANG introduced self and role at [facility], pt shakes her head understanding. Pt is A&Ox4. Pt is currently on the [facility] vent but is able to communicate through gestures and handwriting. Pt GD (Monserrat) and sister (Gisselle) at bedside. Care providers, pharmacy, and demographics verified. Admitting dx: Acute Hypoxic RF PCP: Lena Kamara Specialists: Tonya (Pulm) Preferred Pharmacy: [facility] Insurance: [email or web address] Prescription Benefit: Yes LNOK: Gisselle Villa (Sister), Monserrat Denis (GD) Living Arrangements: Pt sister and GD state that the pt lives at home with 2 granddaughters and 2 daughters in a single story ranch style home with 2 steps to enter ADLs/IADLs: Reports ind at baseline Transportation: Self, GD (Monserrat) DME: Nebulizer, BP Monitor, Pox, W/C, FWW, Cane, Lift chair. Pt is currently requiring additional oxygen and may qualify for home oxygen use. A verbal list of local in-network DME companies were provided to the pt at this time. Pt prefers [facility] HHC/SNF: Denies history Pt?s goal: Return to PLOF Plan: TBD. Pt is currently on the ventilator. Per the pt RN, pt living will has been placed into the pt chart and the plan is to attempt to extubate today vs tomorrow. PT has been held d/t medically unstable for eval. 6-Click score is 8. Pt and pt family deny further questions or concerns at this time. Care Management to continue to follow. Yuliya Bay RN, CM
--- NOTE | 2024-08-13 17:02 | CASEMGMT ---
Social Work Family provided [facility] with copy of pt's Living Will and HCPOA naming pts sister Pat Garcia as HCPOA. Documents on pt's chart. AURORA Hall
--- NOTE | 2024-08-13 18:14 | PN.CC_ITS ---
Objective Data Objective Data Vital Signs: Vital Signs Last response 3 Temperature 37.3 C H 08/13/24 18:00 Temperature Source Core 08/13/24 18:00 Pulse Rate 94 08/13/24 18:00 Respiratory Rate 18 08/13/24 18:00 Respiratory Effort Mechanically Ventilated 08/13/24 16:35 Respiratory Depth Normal 08/13/24 16:35 Respiratory Pattern Normal 08/13/24 16:35 Blood Pressure 112/83 H 08/13/24 18:00 Blood Pressure Mean 92 08/13/24 18:00 Blood Pressure Source Monitor 08/13/24 18:00 Blood Pressure Position Semi-Fowlers 08/13/24 18:00 Blood Pressure Location Right Arm 08/13/24 18:00 Pulse Ox 92 08/13/24 18:00 Oxygen Delivery Method Mechanical Ventilator 08/13/24 18:00 Oxygen Flow Rate (L/min) 2 08/12/24 14:11 Fraction of Inspired Oxygen (FIO2) 30 08/13/24 18:00 I&O: I&O Last 24 Hours 3 08/12/24 08/13/24 08/13/24 23:59 11:59 23:59 Intake Total 1988.66 / 1998.89 1076.41 / 1130.41 54.00 / 1130.41 Output Total 100 / 100 500 / 800 300 / 800 Balance 1889.66 / 1899.89 576.41 / 330.41 -246.00 / 330.41 I&O: Total Stay 3 08/12/24 14:09 thru 08/13/24 18:00 Intake Total 3120.07 Output Total 900 Balance 2220.07 Current Meds Ordered / Administered: Current meds ordered / Administered 3 Generic Name Dose Route Start Last Admin Trade Name Freq PRN Reason Stop Dose Admin Albuterol Sulfate 2.5 mg 08/12/24 17:40 Albuterol 2.5 Mg/3 Ml Vial.Neb. INHALATION Q2H PRN PRN SHORTNESS OF BREATH Albuterol/Ipratropium 3 ml 08/12/24 17:40 08/13/24 15:18 Ipratropium/Albuterol Sulfate 3 Ml Ampul.Neb INHALATION 3 ml Q4H.RT EBER Administration Aspirin 81 mg 08/13/24 08:00 08/13/24 07:46 Aspirin 81 Mg Tab.Chew NG 81 mg DAILYCM EBER Administration Chlorhexidine Gluconate 15 ml 08/12/24 22:00 08/13/24 07:43 Chlorhexidine 15 Ml PO 15 ml BID EBER Administration Enoxaparin Sodium 40 mg 08/13/24 10:00 08/13/24 08:10 Enoxaparin 40 Mg/0.4 Ml Syringe SC 40 mg DAILY EBER Administration Famotidine 20 mg 08/13/24 10:00 08/13/24 08:10 Famotidine 20 Mg Tablet GT 20 mg DAILY EBER Administration Propofol 1,000 mg in 100 mls @ 3.816 mls/hr 08/12/24 16:30 08/13/24 11:04 Diprivan CONT INF Not Given .Q12H EBER Protocol 10 MCG/KG/MIN Sodium Chloride 100 mls @ 15 mls/hr 08/12/24 17:35 IV .Q6H40M PRN Saline Flush Sodium Chloride 100 mls @ 15 mls/hr 08/12/24 17:35 IV .Q6H40M PRN Additional IVPB Infusion Sodium Chloride 1,000 mls @ 75 mls/hr 08/12/24 17:40 08/13/24 04:29 IV 08/13/24 20:19 75 mls/hr .[id number] EBER Administration Protocol Fentanyl 100 mls @ 2.5 mls/hr 08/12/24 17:40 08/13/24 18:00 CONT INF 75 mcg/hr UD EBER 7.5 mls/hr Titration Protocol 25 MCG/HR Ceftriaxone Sodium 1 gm in 50 mls @ 100 mls/hr 08/12/24 17:40 08/13/24 08:39 Rocephin IV Infused Q24 EBER Infusion Dexmedetomidine HCl 400 mcg/ 100 mls @ 7.788 mls/hr 08/12/24 18:45 08/13/24 18:00 Sodium Chloride CONT INF 0.7 mcg/kg/hr .[id number] EBER 10.9 mls/hr Titration Protocol 0.5 MCG/KG/HR Methylprednisolone 40 mg 08/12/24 22:00 08/13/24 14:55 Methylprednisolone 40 Mg/Ml Vial IV 40 mg Q8 EBER Administration Ondansetron HCl 4 mg 08/12/24 17:40 Ondansetron 4 Mg/2 Ml Vial IV Q8H PRN PRN NAUSEA/VOMITING Sodium Chloride 10 - 40 ml 08/12/24 17:35 08/13/24 06:27 0.9% Saline Lock 10 Ml Syringe IV 20 ml UD PRN Administration SALINE FLUSH Lab / Micro Data 08/13/24 04:30 08/13/24 04:30 Labs: Laboratory Results - last 24 hr 08/12/24 14:27: Total Creatine Kinase 1013 H, Triglycerides 65 08/12/24 22:55: Lactic Acid 0.9 08/13/24 04:30: WBC 9.1, RBC 3.54 L, Hgb 10.0 L, Hct 30.6 L, MCV 86.4, MCH 28.2, MCHC 32.7, RDW Std Deviation 40.8, RDW Coeff of Kody 13.0, Plt Count 191, MPV 9.7, Immature Gran % (Auto) 0.900, Neut % (Auto) 80.5 H, Lymph % (Auto) 13.0 L, [place] % (Auto) 5.5, Eos % (Auto) 0.0, Baso % (Auto) 0.1, Absolute Neuts (auto) 7.3, Absolute Lymphs (auto) 1.18, Nucleated RBC % 0, Sodium 136, Potassium 4.0, Chloride 107, Carbon Dioxide 23.0, Anion Gap 6, BUN 18, Creatinine 0.48 L, Estim Creat Clear Calc 59.73, Est GFR (MDRD) Af Amer 165, Est GFR (MDRD) Non-Af 136, B UN/Creatinine Ratio 37.3 H, Glucose 151 H, Calcium 8.2 L Micro: Microbiology 08/12/24 17:55 Urine Catheter - Rojas Legionella Antigen - Final 08/12/24 17:55 Urine Catheter - Rojas Streptococcus pneumoniae Antigen (M - Final 08/12/24 14:33 Mucosa - Nose SARS-CoV-2, Influenza & RSV (PCR) - Final ABG Data ABG results: ABG 08/12/24 20:12 Specimen Type ART Sample Site R Radial pH 7.37 Bicarbonate Actual 25.0 Total CO2 26 Base Excess 0 O2 Saturation 95 O2 % 30.0 ABG pCO2 43.0 ABG pO2 78 Loi Test N/A Respiration Rate 14 O2 Delivery Device Adult Vent Vent Mode AC Tidal Volume 450.0 POC PEEP 5 Assessment and Plan . Assessment and plan: Hypercapnic Respiratory Failure Acute Exacerbation of COPD RSV -doing well with SBT -anticipate trial extubation -cont abx/steroids/bronchodilators Critical Care Time: 33 minutes The entirety of this encounter was done via Telemedicine Physical Exam Narrative Gen: Intubated, alert ENT: Sclera anicteric; moist conjunctiva and mucous membranes; connected to vent via ETT CV: rrr, nl s1 and s2, no mrg; pulses 2+/symmetric and normal cap refill Lungs: CTAB, well-synchronized with vent; no nasal flaring or accessory muscle use Abdomen: Soft, nt/nd; normal bowel sounds, no organomegaly and no ascites or abnormal tympany Ext: no clubbing, cyanosis, or edema Neuro: alert/following commands; CN reflexes appear intact Skin: normal turgor; no rash Psych: calm Subjective Subjective Awake/alert doing SBT at the time of my visit
[2024-08-14] VITALS (36 sets, daily range): BP systolic 106–162; BP diastolic 67–98; PULSE 64–105; RESP 10–22; TEMP 36.6–37.8; O2SAT 94–100; BMI 23.6
[2024-08-14] MEDS: fentaNYL drip 100 ML 7.5 MCG CONT INF (02:16)
[2024-08-14] MEDS: Ipratropium/Albuterol Sulfate 3 ML AMPUL.NEB INHALATION ×6 (02:44→22:32)
[2024-08-14] MEDS: dexMEDEtomidine 400 MCG in 0.9% Normal Saline (100mL Bag) 96 ML 14 MCG CONT INF (05:11)
--- NOTE | 2024-08-14 05:20 | RAD_ITS ---
EXAM: XR CHEST, 1 VIEW CLINICAL INDICATION: Respiratory Failure TECHNIQUE: Frontal view of the chest. 5:19 AM. COMPARISON: Previous chest radiograph of 08/12/2024. FINDINGS: LUNGS AND PLEURAL SPACES: Lungs remain hyperinflated with pruning of peripheral pulmonary vascular markings secondary pulmonary emphysema. No acute pulmonary infiltrates or pleural effusion. No pneumothorax. The previously noted interstitial prominence at the lung bases has resolved. HEART: Heart size remains within normal limits. MEDIASTINUM: Central airways and mediastinal contour are unremarkable. BONES/JOINTS: Unremarkable. No acute fracture. SOFT TISSUES: Unremarkable. TUBES, LINES AND DEVICES: 2 view shows the ET tube remaining in place, in satisfactory addition. NG tube extends into the stomach; the NG tube forms a loop within within the gastric antrum and folds back upon itself, with its tip projected at the medial aspect gastric fundus, not significant changed. RAD/Chest 1 View (Portable) IMPRESSION: Interval resolution of the previously noted basilar interstitial prominence. Stable positioning of ET tube and NG tube. Pulmonary emphysema. No pneumonia. Electronically Signed: Bob Dee MD at 7:57 EST ,
[2024-08-14 06:01] LABS: Absolute Lymphocyte Count 1.37 X10^3/uL (0.83-4.51); Absolute Neutrophil Count 14.2 X10^3/uL (2.0-7.7); Basophil# 0.03 X10^3/uL; Basophil% 0.2 % (0-1); Hematocrit 33.8 % (37-47); Hemoglobin 10.9 g/dL (12.0-15.0); Lymphocyte # 1.37 X10^3/ul (0.83-4.51); Lymphocyte % 8.3 % (19-41); Mean Corp Hgb Conc 32.2 g/dL (32-36); Mean Corpuscular Hgb 28.4 pg (27.0-32.0); Mean Platelet Vol. 9.5 fl (6.2-12.0); Monocyte# 0.76 X10^3/uL; Monocyte% 4.6 % (0-10); NRBC Flagged by Analyzer 0 % (0-5); Neutrophil # 14.18 X10^3/uL (2.7-7.7); Platelet Count 230 K/mm3 (150-450); RBC Distribution Width CV 13.3 % (11.6-14.6); RBC Distribution Width SD 42.8 fl (35.1-43.9); Red Blood Count 3.84 M/mm3 (4.2-5.4); White Blood Count 16.5 K/mm3 (4.4-11.0)
[2024-08-14 06:40] LABS: ALB/GLOB Ratio 0.8 RATIO (0.9-2.4); AST(SGOT) 29 U/L (15-37); Alanine Aminotransfer ALT/SGPT 48 U/L (13-56); Albumin, Serum 2.9 g/dL (3.2-5.0); Alkaline Phosphatase 47 U/L (45-117); Anion Gap 5 (5-15); BUN 23 mg/dL (7-18); BUN/Creat Ratio 38.7 RATIO (10-20); Calcium,Total 8.8 mg/dL (8.5-10.1); Chloride 109 mmol/L (98-107); EST Glomerular Filtration Rate 107 mL/min (>60); Est Glom Filt Rate - Afr Amer 130 mL/min (>60); Estimated Creatinine Clearance 59.73 ml/min; Globulin 3.5 g/dL (2.2-4.2); Glucose 136 mg/dL (74-106); Potassium 4.2 mmol/L (3.5-5.1); Protein, Total 6.4 g/dL (6.4-8.2); Sodium Level 140 mmol/L (136-145)
--- NOTE | 2024-08-14 06:55 | PN.HOSP_ITS ---
Reason for Visit Reason for Visit: Diagnoses Chronic obstructive pulmonary disease with (acute) exacerbation (08/12/24) Acute respiratory failure with hypoxia (08/12/24) Acute respiratory failure with hypercapnia (08/12/24) Restlessness and agitation (08/12/24) Subjective Subjective Tolerated a 3-hour breathing trial yesterday. It was stopped because nursing have reached out to critical care medicine to see if patient could be extubated but they never responded back. Patient has for the most part been very awake and interactive writing on clipboard apparently writing quite vociferously. This morning she is more sedate and sleeping. Objective Data Objective Data Vital Signs: Vital Signs Temp Pulse Resp BP Pulse Ox O2 Del Method O2 Flow Rate 37.3 C 82 15 136/82 H 96 Mechanical Ventilator 2 08/14/24 04:00 08/14/24 06:00 08/14/24 06:00 08/14/24 06:00 08/14/24 06:00 08/14/24 06:00 08/12/24 14:11 FiO2 30 08/14/24 06:00 Oxygen Flow Rate (L/min) 2 Oxygen Delivery Method Mechanical Ventilator Weight: 64.5 kg Body Mass Index (BMI) 23.6 Intake & Output: Intake and Output for Last 24 Hours 08/12/24 08/13/24 08/14/24 23:59 23:59 23:59 Intake Total 66 / 2231.77 / 2242.77 153.24 / 153.24 Output Total 100 / 100 800 / 1025 825 / 825 Balance 1889.66 / 1899.89 1431.77 / 1217.77 -671.76 / -671.76 Lab / Micro Data 08/14/24 05:50 08/14/24 05:50 Labs: Laboratory Results - last 24 hr 08/14/24 05:50: WBC 16.5 H, RBC 3.84 L, Hgb 10.9 L, Hct 33.8 L, MCV 88.0, MCH 28.4, MCHC 32.2, RDW Std Deviation 42.8, RDW Coeff of Kody 13.3, Plt Count 230, MPV 9.5, Immature Gran % (Auto) 0.900, Neut % (Auto) 86.0 H, Lymph % (Auto) 8.3 L, [place] % (Auto) 4.6, Eos % (Auto) 0.0, Baso % (Auto) 0.2, Absolute Neuts (auto) 14.2 H, Absolute Lymphs (auto) 1.37, Nucleated RBC % 0, Sodium 140, Potassium 4.2, Chloride 109 H, Carbon Dioxide 26.0, Anion Gap 5, BUN 23 H, Creatinine 0.60, Estim Creat Clear Calc 59.73, Est GFR (MDRD) Af Amer 130, Est GFR (MDRD) Non-Af 107, BUN/Creatinine Ratio 38.7 H, Glucose 136 H, Calcium 8.8, Total Bilirubin 0.30, AST 29, ALT 48, Alkaline Phosphatase 47, Total Protein 6.4, A lbumin 2.9 L, Globulin 3.5, Albumin/Globulin Ratio 0.8 L Micro: Microbiology 08/12/24 17:55 Urine Catheter - Rojas Legionella Antigen - Final 08/12/24 17:55 Urine Catheter - Rojas Streptococcus pneumoniae Antigen (M - Final 08/12/24 14:33 Mucosa - Nose SARS-CoV-2, Influenza & RSV (PCR) - Final Physical Exam Const Constitutional Narrative: Sleeping. Did not awake. Appears to be comfortable. Afebrile. On the ventilator. HEENT HEENT Narrative: ET tube and OG tube in place Eyes Eyes Narrative: Glasses Resp Resp Narrative: Coarse breath sounds bilaterally but otherwise clear. Cardio regular rate, regular rhythm, S1 normal heart sound and S2 normal heart sound GI normal to inspection, nondistended, normoactive bowel sounds, soft to palpation, non-tender and non-distended Extremity normal to inspection and full ROM Neuro Sensorium / Orientation: awake and alert Assessment & Plan Assessment/Plan (1) Acute respiratory failure with hypoxia and hypercapnia: PLAN: Secondary to COPD exacerbation. Will treat her empirically for pneumonia given her respiratory failure but is most likely COPD exacerbation secondary to RSV infection. Patient to intubated and will consult pulmonary for further ventilator management. Because pneumonia is a possibility though I think less likely. Strep and legionella antigens negative. SCx pending. Resp panel negative. But if infectious workup from bacterial standpoint is negative then would recommend discontinuing antibiotic. Still on the ventilator. Will defer to critical care medicine as to when the patient could be safely extubated. (2) COPD with exacerbation: PLAN: Continue bronchodilators, methylprednisolone. Exacerbated likely due to the RSV infection. No treatment for the RSV. (3) Agitation: PLAN: Very agitated after intubation. Became hypotensive w propofol, which has been weaned off. On fentanyl and dexmedetomidine gtts. Seem to be doing better overall with the fentanyl and dexmedetomidine drips. PLAN: Plan VTE prophylaxis with enoxaparin Before patient was intubated she agreed to being intubated. CODE STATUS is full. Charges/Coding Visit Charges Inpatient E&M: 65126 Subs Hosp L2
[2024-08-14] MEDS: Ceftriaxone 1 GM/50 ML BAG IV (08:12)
[2024-08-14] MEDS: Chlorhexidine 15 ML PO (08:13)
[2024-08-14] MEDS: Famotidine 20 MG Tablet GT (08:16)
[2024-08-14] MEDS: Enoxaparin 40 MG/0.4 ML Syringe SC (08:16)
[2024-08-14] MEDS: Aspirin 81 MG TAB.CHEW NG (08:16)
[2024-08-14] MEDS: dexMEDEtomidine 400 MCG in 0.9% Normal Saline (100mL Bag) 96 ML 23.4 MCG CONT INF (09:45)
[2024-08-14] MEDS: fentaNYL drip 100 ML 20 MCG CONT INF (10:49)
--- NOTE | 2024-08-14 17:31 | PN.CC_ITS ---
Objective Data Objective Data Vital Signs: Vital Signs Last response 3 Temperature 36.8 C 08/14/24 14:00 Temperature Source Core 08/14/24 14:00 Pulse Rate 86 08/14/24 17:00 Pulse Strength Normal (2+) 08/14/24 10:00 Respiratory Rate 13 08/14/24 17:00 Respiratory Effort Mechanically Ventilated 08/14/24 12:00 Respiratory Depth Normal 08/14/24 12:00 Respiratory Pattern Normal 08/14/24 13:26 Blood Pressure 111/77 08/14/24 17:00 Blood Pressure Mean 88 08/14/24 17:00 Blood Pressure Source Monitor 08/14/24 17:00 Blood Pressure Position Semi-Fowlers 08/14/24 17:00 Blood Pressure Location Right Arm 08/14/24 17:00 Pulse Ox 97 08/14/24 17:00 Oxygen Delivery Method Nasal Cannula 08/14/24 17:00 Oxygen Flow Rate (L/min) 3 08/14/24 17:00 Fraction of Inspired Oxygen (FIO2) 30 08/14/24 14:00 I&O: I&O Last 24 Hours 3 08/13/24 08/14/24 08/14/24 23:59 11:59 23:59 Intake Total 1155.36 / 2242.77 374.02 / 468.77 94.75 / 468.77 Output Total 300 / 1025 825 / 1100 275 / 1100 Balance 855.36 / 1217.77 -450.98 / -631.23 -180.25 / -631.23 I&O: Total Stay 3 08/12/24 14:09 thru 08/14/24 16:00 Intake Total 4690.20 Output Total 1999 Balance 2690.20 Current Meds Ordered / Administered: Current meds ordered / Administered 3 Generic Name Dose Route Start Last Admin Trade Name Freq PRN Reason Stop Dose Admin Albuterol Sulfate 2.5 mg 08/12/24 17:40 Albuterol 2.5 Mg/3 Ml Vial.Neb. INHALATION Q2H PRN PRN SHORTNESS OF BREATH Albuterol/Ipratropium 3 ml 08/12/24 17:40 08/14/24 13:55 Ipratropium/Albuterol Sulfate 3 Ml Ampul.Neb INHALATION 3 ml Q4H.RT EBER Administration Aspirin 81 mg 08/13/24 08:00 08/14/24 08:16 Aspirin 81 Mg Tab.Chew NG 81 mg DAILYCM EBER Administration Chlorhexidine Gluconate 15 ml 08/12/24 22:00 08/14/24 08:13 Chlorhexidine 15 Ml PO 15 ml BID EBER Administration Enoxaparin Sodium 40 mg 08/13/24 10:00 08/14/24 08:16 Enoxaparin 40 Mg/0.4 Ml Syringe SC 40 mg DAILY EBER Administration Famotidine 20 mg 08/13/24 10:00 08/14/24 08:16 Famotidine 20 Mg Tablet GT 20 mg DAILY EBER Administration Sodium Chloride 100 mls @ 15 mls/hr 08/12/24 17:35 IV .Q6H40M PRN Saline Flush Sodium Chloride 100 mls @ 15 mls/hr 08/12/24 17:35 IV .Q6H40M PRN Additional IVPB Infusion Ceftriaxone Sodium 1 gm in 50 mls @ 100 mls/hr 08/12/24 17:40 08/14/24 09:07 Rocephin IV Infused Q24 EBER Infusion Methylprednisolone 40 mg 08/12/24 22:00 08/14/24 12:53 Methylprednisolone 40 Mg/Ml Vial IV 40 mg Q8 EBER Administration Ondansetron HCl 4 mg 08/12/24 17:40 Ondansetron 4 Mg/2 Ml Vial IV Q8H PRN PRN NAUSEA/VOMITING Sodium Chloride 10 - 40 ml 08/12/24 17:35 08/13/24 06:27 0.9% Saline Lock 10 Ml Syringe IV 20 ml UD PRN Administration SALINE FLUSH Lab / Micro Data 08/14/24 05:50 08/14/24 05:50 Labs: Laboratory Results - last 24 hr 08/14/24 05:50: WBC 16.5 H, RBC 3.84 L, Hgb 10.9 L, Hct 33.8 L, MCV 88.0, MCH 28.4, MCHC 32.2, RDW Std Deviation 42.8, RDW Coeff of Kody 13.3, Plt Count 230, MPV 9.5, Immature Gran % (Auto) 0.900, Neut % (Auto) 86.0 H, Lymph % (Auto) 8.3 L, [place] % (Auto) 4.6, Eos % (Auto) 0.0, Baso % (Auto) 0.2, Absolute Neuts (auto) 14.2 H, Absolute Lymphs (auto) 1.37, Nucleated RBC % 0, Sodium 140, Potassium 4.2, Chloride 109 H, Carbon Dioxide 26.0, Anion Gap 5, BUN 23 H, Creatinine 0.60, Estim Creat Clear Calc 59.73, Est GFR (MDRD) Af Amer 130, Est GFR (MDRD) Non-Af 107, BUN/Creatinine Ratio 38.7 H, Glucose 136 H, Calcium 8.8, Total Bilirubin 0.30, AST 29, ALT 48, Alkaline Phosphatase 47, Total Protein 6.4, A lbumin 2.9 L, Globulin 3.5, Albumin/Globulin Ratio 0.8 L Micro: Microbiology 08/12/24 14:33 Mucosa - Nose SARS-CoV-2, Influenza & RSV (PCR) - Final RSV 08/12/24 16:49 Sputum, Induced/Lukens Gram Stain - Final 08/12/24 16:49 Sputum, Induced/Lukens Respiratory Culture - Preliminary Appears to be normal respiratory jeet. Further studies to follow. Imaging Radiology Impression Chest X-Ray 08/14/24 05:20 IMPRESSION: Interval resolution of the previously noted basilar interstitial prominence. Stable positioning of ET tube and NG tube. Pulmonary emphysema. No pneumonia. Electronically Signed: Bob Dee MD at 7:57 EST , Assessment and Plan . Assessment and plan: Hypercapnic Respiratory Failure Acute Exacerbation of COPD RSV -doing well with SBT -extubate -cont abx/steroids/bronchodilators -swallow eval -aggressive mobilization once extubated Critical Care Time: 34 minutes The entirety of this encounter was done via Telemedicine Physical Exam Narrative Gen: Intubated, alert ENT: Sclera anicteric; moist conjunctiva and mucous membranes; connected to vent via ETT CV: rrr, nl s1 and s2, no mrg; pulses 2+/symmetric and normal cap refill Lungs: CTAB, well-synchronized with vent; no nasal flaring or accessory muscle use Abdomen: Soft, nt/nd; normal bowel sounds, no organomegaly and no ascites or abnormal tympany Ext: no clubbing, cyanosis, or edema Neuro: alert/following commands; CN reflexes appear intact Skin: normal turgor; no rash Psych: calm Subjective Subjective Did well with PS/CPAP yesterday. Awake/alert again today.
[2024-08-14] MEDS: 0.9% Saline Lock 10 ML Syringe IV (22:28)
[2024-08-15] VITALS (20 sets, daily range): BP systolic 104–149; BP diastolic 60–95; PULSE 79–109; RESP 14–22; TEMP 36.6–37.4; O2SAT 9–99; BMI 23.1
[2024-08-15] MEDS: Ipratropium/Albuterol Sulfate 3 ML AMPUL.NEB INHALATION ×6 (02:34→23:24)
[2024-08-15] MEDS: 0.9% Saline Lock 10 ML Syringe IV ×2 (05:09→09:28)
--- NOTE | 2024-08-15 05:55 | RAD_ITS ---
EXAM: XR CHEST, 1 VIEW CLINICAL INDICATION: Respiratory Failure TECHNIQUE: Frontal view of the chest. COMPARISON: 08/14/2024. FINDINGS: LUNGS AND PLEURAL SPACES: Emphysema. No pneumothorax. No effusion. HEART: Unremarkable. Cardiac silhouette not enlarged. MEDIASTINUM: Central airways and mediastinal contour are unremarkable. BONES/JOINTS: Unremarkable. No acute fracture. SOFT TISSUES: Unremarkable. TUBES, LINES AND DEVICES: The endotracheal tube and NG tube have been removed. RAD/Chest 1 View (Portable) IMPRESSION: 1. The endotracheal tube and NG tube have been removed. 2. Emphysema. Electronically Signed: Guille García MD at 6:15 EST ,
--- NOTE | 2024-08-15 05:58 | PN.CC_ITS ---
Assessment & Plan Assessment/Plan (1) Acute respiratory failure with hypoxia and hypercapnia: PLAN: Plan RECOMMENDATIONS: 1. Supplemental oxygen to maintain saturations at or above 90%. 2. Continue scheduled bronchodilators and steroids. 3. Anticipate need for prednisone taper at discharge. 4. Okay to discontinue antimicrobials. 5. Continue appropriate DVT prophylaxis. 6. Encourage incentive spirometer use and mobilize patient as tolerated. 7. The patient is medically stable for transfer out of the intensive care unit. Will sign off from a critical care perspective. 8. 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 Castaneda, upon transfer out of ICU. IMPRESSIONS: 1. Acute respiratory failure with hypoxemia and hypercapnia Secondary to COPD exacerbation triggered by RSV infection. The patient is doing well status post extubation. Recommend continuing supplemental oxygen to maintain saturations at or above 90%. Continue scheduled bronchodilators and steroids. Okay from my perspective to discontinue antimicrobials. Resume Bevespi at discharge. 2. History of GERD/chronic tobacco dependency Complicates care, management, recovery and prognosis. Continue home medications as indicated. Smoking cessation is strongly advised. This note was generated with [employer] dictation software. It may contain incorrect words, spelling, and punctuation that were not noted in checking the note before signing. Subjective Subjective The patient was seen and examined at the bedside this morning. Events from the last 24 hours have been reviewed. The patient is currently afebrile, hemodynamically stable and maintaining appropriate oxygen saturations on 3 L/min via nasal cannula. The patient reported that she does not routinely utilize supplemental oxygen at her baseline. She is followed on an outpatient basis by Dr. Castaneda of pulmonary medicine. The patient remains on scheduled bronchodilators and steroids. Objective Data Objective Data The patient's most recent lab work, culture data and imaging studies have all been personally reviewed. RSV PCR was positive on August 12. Vital Signs: Vital Signs Temp Pulse Resp BP Pulse Ox O2 Del Method O2 Flow Rate 99.2 F H 89 14 124/78 H 99 Nasal Cannula 3 08/15/24 05:00 08/15/24 05:00 08/15/24 05:00 08/15/24 05:00 08/15/24 05:00 08/15/24 05:00 08/15/24 05:00 FiO2 30 08/14/24 14:00 Oxygen Flow Rate (L/min) 3 Oxygen Delivery Method Nasal Cannula Weight: 138 lb 10.732 oz Body Mass Index (BMI) 23.1 Intake & Output: Intake and Output for Last 24 Hours 08/13/24 08/14/24 08/15/24 23:59 23:59 23:59 Intake Total 2231.77 / 2242.77 718.77 / 718.77 Output Total 800 / 1025 1550 / 1550 400 / 400 Balance 1431.77 / 1217.77 -831.23 / -831.23 -400 / -400 Lab / Micro Data Attestation: I reviewed the patient's lab results. 08/14/24 05:50 08/14/24 05:50 Labs: Laboratory Results - last 24 hr 08/14/24 05:50: WBC 16.5 H, RBC 3.84 L, Hgb 10.9 L, Hct 33.8 L, MCV 88.0, MCH 28.4, MCHC 32.2, RDW Std Deviation 42.8, RDW Coeff of Kody 13.3, Plt Count 230, MPV 9.5, Immature Gran % (Auto) 0.900, Neut % (Auto) 86.0 H, Lymph % (Auto) 8.3 L, [place] % (Auto) 4.6, Eos % (Auto) 0.0, Baso % (Auto) 0.2, Absolute Neuts (auto) 14.2 H, Absolute Lymphs (auto) 1.37, Nucleated RBC % 0, Sodium 140, Potassium 4.2, Chloride 109 H, Carbon Dioxide 26.0, Anion Gap 5, BUN 23 H, Creatinine 0.60, Estim Creat Clear Calc 59.73, Est GFR (MDRD) Af Amer 130, Est GFR (MDRD) Non-Af 107, BUN/Creatinine Ratio 38.7 H, Glucose 136 H, Calcium 8.8, Total Bilirubin 0.30, AST 29, ALT 48, Alkaline Phosphatase 47, Total Protein 6.4, A lbumin 2.9 L, Globulin 3.5, Albumin/Globulin Ratio 0.8 L Micro: Microbiology 08/12/24 14:33 Mucosa - Nose SARS-CoV-2, Influenza & RSV (PCR) - Final RSV 08/12/24 16:49 Sputum, Induced/Lukens Gram Stain - Final 08/12/24 16:49 Sputum, Induced/Lukens Respiratory Culture - Preliminary Appears to be normal respiratory jeet. Further studies to follow. 08/12/24 17:55 Urine Catheter - Rojas Legionella Antigen - Final 08/12/24 17:55 Urine Catheter - Rojas Streptococcus pneumoniae Antigen (M - Final Radiography Diagnostic Testing: Radiology Impression Chest X-Ray 08/14/24 05:20 IMPRESSION: Interval resolution of the previously noted basilar interstitial prominence. Stable positioning of ET tube and NG tube. Pulmonary emphysema. No pneumonia. Electronically Signed: Bob Dee MD at 7:57 EST , Physical Exam Const alert and no apparent distress General Appearance: cooperative HEENT normocephalic, head/scalp atraumatic and moist oral mucous membranes Eyes PERRL, EOMs intact bilaterally and conjunctivae normal Neck supple General: trachea midline Chest inspection of chest normal Resp Effort and Inspection: tachypneic Auscultation: diminished lung sounds Cardio regular rate and regular rhythm GI normal to inspection, nondistended, normoactive bowel sounds Extremity no clubbing, cyanosis or edema Skin no rashes or lesions noted Neuro CN's II-XII intact bilaterally, moves all extremities and no focal motor deficits Psych cooperative and affect normal Charges/Coding Visit Charges Inpatient E&M: 77688 Subs Hosp L2
--- NOTE | 2024-08-15 07:29 | PCM.PN.HOSP ---
Reason for Visit Reason for Visit: Diagnoses Chronic obstructive pulmonary disease with (acute) exacerbation (08/12/24) Acute respiratory failure with hypoxia (08/12/24) Acute respiratory failure with hypercapnia (08/12/24) Restlessness and agitation (08/12/24) Subjective Subjective Continues to breath well post-extubation. Very concerned about the RSV as she alpha1 anti trypsin deficiency and continues to smoke. Objective Data Objective Data Vital Signs: Vital Signs Temp Pulse Resp BP Pulse Ox O2 Del Method O2 Flow Rate 37.4 C H 92 16 129/73 H 99 Nasal Cannula 3 08/15/24 06:00 08/15/24 06:00 08/15/24 06:00 08/15/24 06:00 08/15/24 06:00 08/15/24 06:00 08/15/24 06:00 FiO2 30 08/14/24 14:00 Oxygen Flow Rate (L/min) 3 Oxygen Delivery Method Nasal Cannula Weight: 62.9 kg Body Mass Index (BMI) 23.1 Intake & Output: Intake and Output for Last 24 Hours 08/13/24 08/14/24 08/15/24 23:59 23:59 23:59 Intake Total 2231.77 / 2242.77 718.77 / 718.77 Output Total 800 / 1025 1550 / 1550 400 / 400 Balance 1431.77 / 1217.77 -831.23 / -831.23 -400 / -400 Lab / Micro Data 08/14/24 05:50 08/14/24 05:50 Micro: Microbiology 08/12/24 14:33 Mucosa - Nose SARS-CoV-2, Influenza & RSV (PCR) - Final RSV 08/12/24 16:49 Sputum, Induced/Lukens Gram Stain - Final 08/12/24 16:49 Sputum, Induced/Lukens Respiratory Culture - Preliminary Appears to be normal respiratory jeet. Further studies to follow. 08/12/24 17:55 Urine Catheter - Rojas Legionella Antigen - Final 08/12/24 17:55 Urine Catheter - Rojas Streptococcus pneumoniae Antigen (M - Final Radiography Diagnostic Testing: Radiology Impression Chest X-Ray 08/14/24 05:20 IMPRESSION: Interval resolution of the previously noted basilar interstitial prominence. Stable positioning of ET tube and NG tube. Pulmonary emphysema. No pneumonia. Electronically Signed: Bob Dee MD at 7:57 EST , Chest X-Ray 08/15/24 05:55 IMPRESSION: 1. The endotracheal tube and NG tube have been removed. 2. Emphysema. Electronically Signed: Guille García MD at 6:15 EST , Physical Exam Const alert and no apparent distress HEENT head/scalp atraumatic and moist oral mucous membranes Resp normal respiratory effort, no retractions and no use of accessory muscles Auscultation: wheezes Cardio regular rate, regular rhythm, S1 normal heart sound and S2 normal heart sound GI normal to inspection, nondistended, normoactive bowel sounds, soft to palpation and non-tender Assessment & Plan Assessment/Plan (1) Acute respiratory failure with hypoxia and hypercapnia: PLAN: Secondary to COPD exacerbation. Will treat her empirically for pneumonia given her respiratory failure but is most likely COPD exacerbation secondary to RSV infection. Patient to intubated and will consult pulmonary for further ventilator management. Because pneumonia is a possibility though I think less likely. Strep and legionella antigens negative. SCx pending. Resp panel negative. But if infectious workup from bacterial standpoint is negative then would recommend discontinuing antibiotic. Extubated 08/14 and doing well post-extubation. Infectious work up (other than RSV) negative. DC abx. (2) COPD with exacerbation: PLAN: Continue bronchodilators, methylprednisolone. Exacerbated likely due to the RSV infection. No treatment for the RSV. Pt smokes and has been diagnosed with alpha 1 antitrypsin deficiency by her medical record librarian, Dr. Castaneda. Futher mgmt as outpt as outpt. (3) Agitation: PLAN: Very agitated after intubation. Became hypotensive w propofol, which has been weaned off. On fentanyl and dexmedetomidine gtts. Seem to be doing better overall with the fentanyl and dexmedetomidine drips. PLAN: Plan VTE prophylaxis with enoxaparin Before patient was intubated she agreed to being intubated. CODE STATUS is full. Transfer to medical surgical unit. Charges/Coding Visit Charges Inpatient E&M: 32800 Subs Hosp L2
[2024-08-15] MEDS: Aspirin 81 MG TAB.CHEW PO (08:45)
[2024-08-15] MEDS: Famotidine 20 MG Tablet PO (08:45)
[2024-08-15] MEDS: Enoxaparin 40 MG/0.4 ML Syringe SC (08:45)
[2024-08-15] MEDS: Ceftriaxone 1 GM/50 ML BAG IV (09:27)
--- NOTE | 2024-08-15 12:09 | CHAPLAIN ---
Type of Pastoral Visit _x__ Initial Visit ___ Follow-up Visit ___ On-call Visit ___ General Patient Visit ___ Spiritual Assessment ___ Family Conference ___ Bereavement ___ Rapid Response ___ Code Blue ___ Other (describe below) Pastoral Care Referral From _x__ Patient ___ Family ___ Nurse ___ Physician ___ Talent Acquisition Project Manager ___ Primary Health Organisation Manager ___ Other (describe below) Sacrament/Intervention _x__ Active listening ___ Anointing ___ Protestant ___ Bereavement ___ Communion _x__ Clarisse exploration ___ ___ Life review _x__ Prayer ___ Reconciliation ___ Sacrament of Sick _x__ Supportive presence ___ Wedding ___ Other (describe below) Pastoral Comments patient is actively doing her breathing treatment and having shortness of breath; offer to not ask her to talk about things the patient does actively engage in the conversation anyway; pt speaks of her health and when asked about her family gives an overview of their many health issues and needs; 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
--- NOTE | 2024-08-15 16:09 | CASEMGMT ---
Social Work- LUKE met with pt to conduct SDOH. Pt reports that she lives in a home that was owned by her father and she has lifetime rights to live in. The ownership of the home is technically split between the 4 surviving children and will be sold/disbursed when pt passes. Pt lives in the home with her two daughters (both have muscular dystrophy), two granddaughters, and one of her daughter's boyfriends. Pt states that only one other person in the home has income, pt dtr Casandra who makes $900/month SSD. Pt dtr Geena has been declined three times for disability. Pt income is $2200/mon and she has drained her [place] for living expenses. Pt reports that she is using credit cards for groceries and only has enough money in [place] for one more tax payment before it is completely gone. Pt is concerned about living expenses past the first of the year and feels it is an emergency situation. Pt has run-up credit card debt for groceries that she is struggling to pay as well. Pt dtrs use a lot of pot and the boyfriend is unable to work full-time due to previous injuries. One granddaughter is 17 yo and in school second time worker and works part-time to cover her care insurance. The other granddaughter is 11yo. Pt feels that she cannot go home to care for daughters if they are sick and will need SNF. Pt dtr was at the dr today and pt was awaiting results of that dr appointment. Pt reports dtr are able to help with small amounts of dishes or sweeping at baseline and their own self-care, but when they are ill require more assistance. Pt reports that she takes 11yo granddaughter to and from school each day. Pt would like to see if she can qualify for medicaid and is open to any and all community resources. Pt was very open to sharing life events including the passing of her father, which pt feels she has not had time to grieve. Pt became emotional in discussion and expressed anxiety about hat would happen to her family if she and they had to move. LUKE provided referral to [facility]. LUKE provided printed information on Valerie Baker, [employer], [employer], [employer], [employer] card, food pantries, hot served meals, food boxes, transportation, [employer] SW remains available to follow. Discharge plans pending following therapy tomorrow. AURORA Spicer
[2024-08-15] MEDS: Montelukast 10 MG Tablet PO (17:39)
[2024-08-16] VITALS (7 sets, daily range): BP systolic 110–116; BP diastolic 71–74; PULSE 85–97; RESP 18–20; TEMP 36.6–36.7; O2SAT 85–98
[2024-08-16] MEDS: Ipratropium/Albuterol Sulfate 3 ML AMPUL.NEB INHALATION ×4 (02:50→14:01)
--- NOTE | 2024-08-16 07:21 | PCM.PN.HOSP ---
Reason for Visit Reason for Visit: Diagnoses Chronic obstructive pulmonary disease with (acute) exacerbation (08/12/24) Acute respiratory failure with hypoxia (08/12/24) Acute respiratory failure with hypercapnia (08/12/24) Restlessness and agitation (08/12/24) Subjective Subjective Breathing well. Anxious. Objective Data Objective Data Vital Signs: Vital Signs Temp Pulse Resp BP Pulse Ox O2 Del Method O2 Flow Rate 36.6 C 88 18 110/74 96 Nasal Cannula 2 08/16/24 03:09 08/16/24 06:40 08/16/24 06:40 08/16/24 03:09 08/16/24 06:40 08/16/24 06:40 08/16/24 06:40 FiO2 96 08/15/24 07:31 Oxygen Flow Rate (L/min) 2 Oxygen Delivery Method Nasal Cannula Weight: 62.9 kg Body Mass Index (BMI) 23.1 Intake & Output: Intake and Output for Last 24 Hours 08/14/24 08/15/24 08/16/24 23:59 23:59 23:59 Intake Total 718.77 / 718.77 1030 / 1030 350 / 350 Output Total 1550 / 1550 750 / 750 300 / 300 Balance -831.23 / -831.23 280 / 280 50 / 50 Lab / Micro Data 08/14/24 05:50 08/14/24 05:50 Micro: Microbiology 08/12/24 16:49 Sputum, Induced/Lukens Gram Stain - Final 08/12/24 16:49 Sputum, Induced/Lukens Respiratory Culture - Preliminary Appears to be normal respiratory jeet. Further studies to follow. 08/12/24 23:00 Blood Culture (Wb) - Anticubital Right Blood Culture - Preliminary No growth in 48 hours. 08/12/24 22:55 Blood Culture (Wb) - Right Hand Blood Culture - Preliminary No growth in 48 hours. 08/12/24 14:33 Mucosa - Nose SARS-CoV-2, Influenza & RSV (PCR) - Final RSV 08/12/24 17:55 Urine Catheter - Rojas Legionella Antigen - Final 08/12/24 17:55 Urine Catheter - Rojas Streptococcus pneumoniae Antigen (M - Final Physical Exam Const alert and no apparent distress HEENT head/scalp atraumatic and moist oral mucous membranes Resp normal respiratory effort and no retractions Resp Narrative: diminished. faint end-expiratory wheeze. Cardio regular rate, regular rhythm, S1 normal heart sound and S2 normal heart sound GI normal to inspection, nondistended, normoactive bowel sounds, soft to palpation, non-tender and non-distended Neuro Sensorium / Orientation: awake and alert Assessment & Plan Assessment/Plan (1) Acute respiratory failure with hypoxia and hypercapnia: PLAN: Secondary to COPD exacerbation. Will treat her empirically for pneumonia given her respiratory failure but is most likely COPD exacerbation secondary to RSV infection. Patient to intubated and will consult pulmonary for further ventilator management. Infectious work up negative. DC abx. Extubated 08/14 and doing well post-extubation. Infectious work up (other than RSV) negative. DC abx. Oxygen testing reviewed and patient is ambulatory in home and in the community and requires home oxygen with portability. (2) COPD with exacerbation: PLAN: Continue bronchodilators, steroids, now switched to prednisone. Exacerbated likely due to the RSV infection. No treatment for the RSV. Pt smokes and has been diagnosed with alpha 1 antitrypsin deficiency by her obstetrics gyn physician, Dr. Castaneda. Futher mgmt as outpt as outpt. (3) Agitation: PLAN: Very agitated after intubation. Became hypotensive w propofol, which has been weaned off. On fentanyl and dexmedetomidine gtts. Seem to be doing better overall with the fentanyl and dexmedetomidine drips. PLAN: Plan VTE prophylaxis with enoxaparin Before patient was intubated she agreed to being intubated. CODE STATUS is full.
[2024-08-16] MEDS: Famotidine 20 MG Tablet PO (08:11)
[2024-08-16] MEDS: Aspirin 81 MG TAB.CHEW PO (08:11)
[2024-08-16] MEDS: predniSONE 20 MG Tablet 40 MG PO (08:11)
[2024-08-16] MEDS: Enoxaparin 40 MG/0.4 ML Syringe SC (08:12)
--- NOTE | 2024-08-16 09:15 | CASEMGMT ---
Addendum entered by Kathy Pappas 08/16/24 14:19: [facility] requested AUTOMATION APPLICATION ENGINEER to be added to the HH order. Added at this time. Addendum entered by Kathy Pappas 08/16/24 10:52: [facility] is able to accept pt and will plan for a SOC tomorrow. Pt aware, updated on dc instructions. Pt DME has been delivered by [employer]. Pt to dc home. Addendum entered by Kathy Pappas 08/16/24 10:02: DC geriatric assistant notified LEANNA TANG that pt chose [facility] as first choice. TC to Meche at [facility], referral made for SN, PT and OT. Will await decision to accept. Original Note: LEANNA TANG into pt room, pt just finishing washing up with ACCESS CLINICIAN. Pt sitting now in chair, discussed dc planning with pt. Pt is agreeable to [facility]. Discussed having SN, PT and OT services. Pt did qualify for home oxygen, pt aware. Provided pt with a verbal local in network list of DME companies, pt chose [employer]. Pt states she also needs a FWW and nebulizer. Received orders for all of the above, hospitalist aware of dc plan. DC geriatric assistant to provide pt with [facility] list and obtain top 3 preferences. Pt denies further needs at this time. Referral sent to [employer] for DME via [employer].
--- NOTE | 2024-08-16 09:42 | CASEMGMT ---
Discharge Planning A list of?HH providers including quality and resource use data and consistent with the patient's preferred geographic region, medical needs, and insurance network was created in [employer] Guide.? This list was provided to the patient. Perlita Lewis, Discharge Planning Asst.
--- NOTE | 2024-08-16 09:58 | PCM.DC.SUM ---
Providers Date of Admission: 08/12/24 Primary Care Physician: Dr. Lena Kamara, DO Consultations 08/12/24 17:40 Consult: Audit Manager / Pulmonary Medicine Routine Consulting Provider: Intensivists/Pulmonary Med Reason for Consult: vent mgmt EMERGENT Consult: No MD Notified: Yes Date Notified: 08/12/24 Time Notified: 16:37 Method of Notification: Text Reason For Visit: HYPOXIC/ HYPERCAPNEIC Diagnosis Discharge Diagnosis (1) Acute respiratory failure with hypoxia and hypercapnia: Status: Acute Code(s): J96.01 - Acute respiratory failure with hypoxia; J96.02 - Acute respiratory failure with hypercapnia Plan: Secondary to COPD exacerbation. Will treat her empirically for pneumonia given her respiratory failure but is most likely COPD exacerbation secondary to RSV infection. Patient to intubated and will consult pulmonary for further ventilator management. Infectious work up negative. DC abx. Extubated 08/14 and doing well post-extubation. Infectious work up (other than RSV) negative. DC abx. Oxygen testing reviewed and patient is ambulatory in home and in the community and requires home oxygen with portability. (2) COPD with exacerbation: Status: Chronic Code(s): J44.1 - Chronic obstructive pulmonary disease with (acute) exacerbation Plan: Continue bronchodilators, steroids, now switched to prednisone. Exacerbated likely due to the RSV infection. No treatment for the RSV. Pt smokes and has been diagnosed with alpha 1 antitrypsin deficiency by her director supply, Dr. Castaneda. Futher mgmt as outpt as outpt. (3) Agitation: Status: Acute Code(s): R45.1 - Restlessness and agitation Plan: Very agitated after intubation. Became hypotensive w propofol, which has been weaned off. On fentanyl and dexmedetomidine gtts. Seem to be doing better overall with the fentanyl and dexmedetomidine drips. Plan VTE prophylaxis with enoxaparin Before patient was intubated she agreed to being intubated. CODE STATUS is full. Medications at Discharge Home Medications albuterol sulfate 90 mcg/actuation aerosol inhaler 2 inh inhalation Q6H PRN shortness of breath or wheezing 08/12/24 aspirin 81 mg chewable tablet (Aspirin Childrens) 1 tab PO DAILY 08/12/24 famotidine 40 mg tablet 40 mg PO DAILY 08/12/24 glycopyrrolate 9 mcg-formoterol 4.8 mcg HFA aerosol inhaler (Bevespi Aerosphere) 2 inh inhalation BID 08/12/24 montelukast 10 mg tablet 10 mg PO DAILY allergy 08/15/24 albuterol sulfate 2.5 mg/3 mL (0.083 %) solution for nebulization 2.5 mg (3 mL) inhalation Q2H PRN PRN SHORTNESS OF BREATH #75 mL 08/16/24 prednisone 20 mg tablet 40 mg (2 x 20 mg) PO DAILYCM #8 tabs 08/16/24 Hospital Course Operations None Procedures Intubation Summary of Care Provided Minutes Spent on Discharge: 35 Hospital Course: 68-year-old female who is an active smoker with COPD and alpha-1 antitrypsin deficiency presents with shortness of breath. Patient was initially put on BiPAP in the emergency room and then was not improving and then was subsequently intubated. Patient was extubated shortly thereafter and did well. Patient was started on steroids as well as bronchodilators. Patient was empirically treated with ceftriaxone but her infectious workup was negative with the exception of RSV. Patient likely had COPD exacerbation due to RSV. Patient will complete a course of prednisone and patient also have a nebulizer for home. Patient will also require oxygen with activity. Patient's course was complicated by severe agitation. Patient was sedated with propofol and fentanyl but was becoming hypotensive with the propofol so Precedex had to be initiated in lieu of the propofol. Weight / BMI Weight Weight: 62.9 kg Body Mass Index (BMI) 23.1 ABG / Lab / Microbiology Data 08/14/24 05:50 08/14/24 05:50 Microbiology: Microbiology 08/12/24 16:49 Sputum, Induced/Lukens Gram Stain - Final 08/12/24 16:49 Sputum, Induced/Lukens Respiratory Culture - Final 08/12/24 23:00 Blood Culture (Wb) - Anticubital Right Blood Culture - Preliminary No growth in 48 hours. 08/12/24 22:55 Blood Culture (Wb) - Right Hand Blood Culture - Preliminary No growth in 48 hours. 08/12/24 14:33 Mucosa - Nose SARS-CoV-2, Influenza & RSV (PCR) - Final RSV 08/12/24 17:55 Urine Catheter - Rojas Legionella Antigen - Final 08/12/24 17:55 Urine Catheter - Rojas Streptococcus pneumoniae Antigen (M - Final D/C Instructions Discharge Diet: No restrictions DC O2, CPAP, BIPAP Needs RN Home O2 Qualification: Home O2 Qualification: Is the patient on home oxygen No 08/16/24 07:56 Home O2 Qualification: AT REST 1- Pulse Ox at rest 91 08/16/24 07:56 Home O2 Qualification: WITH AMBULATION 1- Pulse Ox with ambulation 85 08/16/24 07:56 1- Oxygen Flow Rate with 0 08/16/24 07:56 ambulation 2- Pulse Ox with ambulation 95 08/16/24 07:56 2- Oxygen Flow Rate with 2 08/16/24 07:56 ambulation PSN CPAP & BiPAP: BiPAP & CPAP Settings per PSN Mode BiPAP 08/12/24 15:18 Bipap Delivery Device Face Mask 08/12/24 15:18 BiPAP Inspiratory Pressure 10 08/12/24 15:18 BiPAP Expiratory Pressure 5 08/12/24 15:18 BiPAP Rate 10 08/12/24 15:18 Fraction of Inspired Oxygen ( 96 08/15/24 07:31 FIO2) Additional Home O2 Discharge instructions: Yes Type of respiratory needs?: Oxygen Oxygen frequency: With Ambulation Oxygen liters per minute during Ambulation: 2 DC home with Oxygen: Yes Home O2 MD Review: I have reviewed the oxygen testing, and the patient qualifies for home oxygen equipment and portability. The patient is mobile in the home and the community. Meaningful Use Info Meaningful Use Meaningful Use Diagnoses (Choose all that apply): None applicable Ischemic Stroke Statin Dosing Therapy Reference: STATIN DOSE THERAPY REFERENCE: * Patients > 75 years receive moderate or high dose statin therapy. * Patients 75 years or YOUNGER should receive HIGH intensity statin dose unless contraindicated. You will be required to document reason for non-treatment if statin daily dose does not meet guidelines. HIGH DOSE STATIN THERAPY DAILY Atorvastatin > than or = to 40 mg Rosuvastatin > than or = to 20 mg Amlodipine + Atorvastatin > than or = to 2.5/40 mg Ezetimibe + Simvastatin 10/80 mg Simvastatin 80mg Discharge Plan Admission Admit Date/Time: 08/12/24 16:21 Primary Reason for Your Visit: COPD exacerbation Attending Provider: Dhruv Brunner Primary Care Provider: Lena Kamara Instructions Additional Instructions / Restrictions: Stop smoking. Follow up with Dr. Castaneda. Discharge Orders/Prescriptions Prescriptions: New albuterol sulfate 2.5 mg /3 mL (0.083 %) Solution For Nebulization 2.5 mg inhalation Q2H PRN PRN (Reason: SHORTNESS OF BREATH ) Qty: 75 0RF prednisone 20 mg Tablet 40 mg PO DAILYCM Qty: 8 0RF Continued albuterol sulfate 90 mcg/actuation HFA aerosol inhaler 2 inh inhalation Q6H PRN (Reason: shortness of breath or wheezing) aspirin [Aspirin Childrens] 81 mg tablet,chewable 1 tab PO DAILY famotidine 40 mg tablet 40 mg PO DAILY Bevespi Aerosphere 9-4.8 mcg HFA aerosol inhaler 2 inh INHALATION BID montelukast 10 mg tablet 10 mg PO DAILY Referrals / Follow Up: Lena Kamara DO [Primary Care Provider] - Within 2 Weeks Rambo Castaneda MD [Med Staff - Active Staff] - Within 1 Month Disposition Disposition (needs filled in before D/C Order can be placed): Home Health Service Charges/Coding Visit Charges Inpatient E&M: 93660 Disch Hosp >30min
--- NOTE | 2024-08-16 10:00 | CASEMGMT ---
Social Work- SW followed up with pt to advise that [facility] reported that pt would not qualify for JACE. SW spoke with pt about resources provided yesterday; SW circled particular resources pt requested for food and utilities and encouraged pt to follow up. Plan: Home with AURORA Faria
== END 2024-08-16 16:32 | disposition home health service (06) | DRG 208 ==
LOC: ED 15:19 → ICU 16:07 → MS3 08-15 12:55
PROVIDERS: Family Medicine; Nurse Practitioner; Emergency Provider Emergency Medicine; PCP Family Medicine
DX: J96.01 Acute respiratory failure with hypoxia (principal); E87.29 Other acidosis; J44.1 Chronic obstructive pulmonary disease with (acute) exacerbation; B97.4 Respiratory syncytial virus as the cause of diseases classified elsewhere; E88.01 Alpha-1-antitrypsin deficiency; I95.2 Hypotension due to drugs; F41.9 Anxiety disorder, unspecified; F17.210 Nicotine dependence, cigarettes, uncomplicated; J96.02 Acute respiratory failure with hypercapnia; D72.829 Elevated white blood cell count, unspecified; K21.9 Gastro-esophageal reflux disease without esophagitis; Z79.82 Long term (current) use of aspirin; Z79.52 Long term (current) use of systemic steroids; Z79.51 Long term (current) use of inhaled steroids; Z20.828 Contact with and (suspected) exposure to other viral communicable diseases; R45.1 Restlessness and agitation; T41.295A Adverse effect of other general anesthetics, initial encounter; Y69 Unspecified misadventure during surgical and medical care
CPT/HCPCS: 31500; 31720; 36600; 71045; 80048; 80053; 82550; 82803; 83605; 84478; 84484; 85025; 87040; 87070; 87205; 87449; 87631; 92610; 93005; 94002; 94003; 94640; 94660; 94762; 97162; 97166; 97802; 99252; 99285; J7030; J7040; A4216; G0463

== ENCOUNTER → 2024-08-19 | Outpatient (CLI) | payer MEDICARE, SELFPAY | END | disposition home or self-care (01) | LOC: LABSPEC 15:10 | PROVIDERS: PCP Family Medicine; Referring Provider Family Medicine; Visit Provider Family Medicine | DX: J96.01 Acute respiratory failure with hypoxia (principal) | CPT/HCPCS: 87086 ==